=== PATIENT | male | born 1930 | race Caucasian/White ===

== ENCOUNTER → 2017-03-05 | Outpatient (CLI) | payer MEDICARE, OTHER ==
[2017-03-05 09:57] LABS: ALANINE AMINOTRANSFERASE 26 U/L (21-72); ALBUMIN 3.6 g/dL (3.5-5.0); ALKALINE PHOSPHATASE 73 U/L (38-126); ANION GAP 13 (5-19); ASPARTATE AMINO TRANSFERASE 39 U/L (17-59); BILIRUBIN,DIRECT 0.3 mg/dL (0.0-0.4); BILIRUBIN,TOTAL 0.7 mg/dL (0.2-1.3); BLOOD UREA NITROGEN 14 mg/dL (7-20); CALCIUM 9.4 mg/dL (8.4-10.2); CARBON DIOXIDE 26 mmol/L (22-30); CHLORIDE 105 mmol/L (98-107); CHOLESTEROL 126.17 mg/dL (0-200); CREATININE RESULT 0.83 mg/dL (0.52-1.25); Direct HDL 44 mg/dL (>40); GLUCOSE 131 mg/dL (75-110); MAGNESIUM 2.2 mg/dL (1.6-2.3); POTASSIUM 4.6 mmol/L (3.6-5.0); SODIUM 143.8 mmol/L (137-145); TOTAL PROTEIN 6.8 g/dL (6.3-8.2); TRIGLYCERIDES 89 mg/dL (<150)
[2017-03-05 10:09] LABS: DIRECT LDL 51 mg/dL (<100)
== END ==
LOC: OD 08:23
PROVIDERS: ATTEND Internal Medicine Cardiovascular Disease
DX: E78.00 Pure hypercholesterolemia, unspecified (principal); Z79.899 Other long term (current) drug therapy
CPT/HCPCS: 36415; 80048; 80061; 80076; 83735

== ENCOUNTER 2017-03-10 12:51 | Inpatient (IN) | payer MEDICARE, OTHER ==
--- NOTE | 2017-03-10 14:03 | ER Document Report ---
ED Medical Screen (RME) - General Chief Complaint: Shortness Of Breath Stated Complaint: SHORTNESS OF BREATH,DIZZY Time seen by provider: 14:03 Mode of Arrival: Wheelchair Information source: Patient Notes: 86-year-old man with COPD and coronary artery disease presenting with shortness of breath. TRAVEL OUTSIDE OF THE [place] IN LAST 30 DAYS: No - Related Data Allergies/Adverse Reactions: No Known Allergies Allergy (Verified 05/04/15 14:25) Past Medical History - Past Medical History Cardiac Medical History: Reports: Hx Atrial Fibrillation, Hx Congestive Heart Failure, Hx Hypercholesterolemia, Hx Hypertension Renal/ Medical History: Denies: Hx Peritoneal Dialysis Past Surgical History: Reports: Hx Cardiac Surgery - 2 stents - Immunizations Immunizations up to date: Yes Hx Diphtheria, Pertussis, Tetanus Vaccination: Yes Physical Exam - Vital signs Vitals: Temp 98.5 F 03/10/17 13:11 Course - Vital Signs Vital signs: Temp Pulse Resp BP Pulse Ox 98.5 F 03/10/17 13:11
[2017-03-10] MEDS ORDERED: IPRATROPIUM/ALBUTEROL 0.5-2.5 MG/3 ML AMPUL NEB ONE (14:04)
[2017-03-10 15:05] LABS: PROTHROMBIN TIME 14.6 SEC (11.4-15.4)
[2017-03-10 15:06] LABS: HEMATOCRIT 19.7 % (37.9-51.0); HGB HCT DIFFERENCE -3.8; MEAN CORPUSCULAR HEMOGLOBIN 16.1 pg (27.0-33.4); MEAN CORPUSCULAR HGB CONC 27.1 g/dL (32.0-36.0); RED BLOOD COUNT 3.32 10^6/uL (4.35-5.55); RED CELL DISTRIBUTION WIDTH 23.2 % (11.5-14.0); WHITE BLOOD COUNT 11.2 10^3/uL (4.0-10.5)
[2017-03-10 15:16] LABS: ALANINE AMINOTRANSFERASE 30 U/L (21-72); ALBUMIN 3.7 g/dL (3.5-5.0); ALKALINE PHOSPHATASE 65 U/L (38-126); ANION GAP 13 (5-19); ASPARTATE AMINO TRANSFERASE 40 U/L (17-59); BILIRUBIN,DIRECT 0.4 mg/dL (0.0-0.4); BILIRUBIN,TOTAL 0.8 mg/dL (0.2-1.3); BLOOD UREA NITROGEN 22 mg/dL (7-20); CALCIUM 9.4 mg/dL (8.4-10.2); CARBON DIOXIDE 24 mmol/L (22-30); CHLORIDE 104 mmol/L (98-107); CREATINE KINASE 51 U/L (55-170); GLUCOSE 114 mg/dL (75-110); POTASSIUM 5.5 mmol/L (3.6-5.0); SODIUM 140.5 mmol/L (137-145); TOTAL PROTEIN 7.1 g/dL (6.3-8.2)
[2017-03-10 15:27] LABS: CREATINE KINASE MB 1.31 ng/mL (<4.55)
[2017-03-10 15:28] LABS: TROPONIN I < 0.012 ng/mL
[2017-03-10 15:50] LABS: HEMOGLOBIN 5.3 g/dL (13.5-17.0)
[2017-03-10 15:53] LABS: BASOPHILS % (MANUAL) 1 % (0-2); EOSINOPHILS % (MANUAL) 0 % (0-6); LYMPHOCYTES % (MANUAL) 14 % (13-45); TOTAL CELLS COUNTED 100
[2017-03-10 15:55] LABS: MICROCYTOSIS 4+; POLYCHROMASIA SLIGHT; TOXIC GRANULATION SLIGHT
[2017-03-10 15:56] LABS: ANISOCYTOSIS 3+; HYPOCHROMASIA 2+; MEAN CORPUSCULAR VOLUME 59 fl (80-97); POIKILOCYTOSIS 1+
[2017-03-10] MEDS ORDERED: NORMAL SALINE 250 ML IV PRN ×5 (16:10→18:58)
--- NOTE | 2017-03-10 16:27 | ER Document Report ---
ED Respiratory Problem - General Chief Complaint: Shortness Of Breath Stated Complaint: SHORTNESS OF BREATH,DIZZY Mode of Arrival: Wheelchair Notes: Patient says that these felt that he can't breathe since yesterday morning. He has not had any chest pains. Has never had this problem before. He's been noted to have low blood pressure for the past 2 days, 87/54 exam. In triage here, his diastolic blood pressure was 39. Patient is here with his daughter who reports that he retains water his lower extremities and wears some compressive stocking device on both lower legs. He also has erythema of those lower legs which is chronic. They do not look infected to the daughter compared to what they have been in the past when he was diagnosed with MRSA. Patient has not had any vomiting or diarrhea. No UTI symptoms. No cough or chest congestion. No fevers. TRAVEL OUTSIDE OF THE [place] IN LAST 30 DAYS: No - Related Data Allergies/Adverse Reactions: No Known Allergies Allergy (Verified 05/04/15 14:25) Past Medical History - General Information source: Patient - Social History Smoking Status: Former Smoker Cigarette use (# per day): No Family History: Reviewed & Not Pertinent - Past Medical History Cardiac Medical History: Reports: Hx Atrial Fibrillation, Hx Congestive Heart Failure, Hx Hypercholesterolemia, Hx Hypertension Endocrine Medical History: Denies: Hx Diabetes Mellitus Type 1, Hx Diabetes Mellitus Type 2 GI Medical History: Reports: Hx Ulcer - Told he had a stomach ulcer many years ago. 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 EENT: Denies eye, ear, nose or mouth or throat pain or other symptoms. CARDIOVASCULAR: Denies chest pain. RESPIRATORY: Denies cough, chest congestion, but shortness of breath. GASTROINTESTINAL: Denies abdominal pain or nausea, vomiting, or diarrhea. Has not had a bowel movement for 2 days. Has been told in the past he has hemorrhoids. GENITOURINARY: Denies difficulty or painful urinating, urinary frequency, blood in urine. MUSCULOSKELETAL: Denies back or neck pain. Denies joint pain or swelling. SKIN: Denies rash or skin lesions. NEUROLOGICAL: Denies LOC or altered mental status. Denies headache. Denies sensory loss or motor deficits. ALL OTHER SYSTEMS REVIEWED AND NEGATIVE. Physical Exam - Vital signs Vitals: Temp 98.5 F 03/10/17 13:11 Interpretation: Hypotensive - Blood pressure 150/39., Other - O2 sat 97% on room air upon arrival.. No: Febrile - Notes Notes: PHYSICAL EXAMINATION: GENERAL: Well-appearing, in no acute distress. Vital signs show a diastolic hypotension. Respirations 26. HEAD: Atraumatic, normocephalic. EYES: Pupils equal round and reactive to light, extraocular movements intact. ENT: oropharynx clear without exudates. Moist mucous membranes. NECK: Normal range of motion, supple. LUNGS: Breath sounds clear and equal bilaterally. Poor air excursions bilaterally. A few scattered wheezes and rhonchi and rales are heard bilaterally. HEART: Regular rate and rhythm without murmurs. ABDOMEN: Soft, nontender. No guarding or rebound. BACK: No tenderness throughout entire back. EXTREMITIES: Normal range of motion without pain. Both lower extremities have on a compressive stocking device. Removal shows mild erythema of the mid anterior lower legs bilaterally. NEUROLOGICAL: Normal speech, too weak to test gait. Normal sensory, motor, and reflex exams. Awake, alert, and oriented x3. Cranial nerves normal. PSYCH: Normal mood, normal affect. SKIN: Warm, dry, no rashes. - Rectal Tenderness: Yes Stool: Bloody - At the entrance to the rectum, but I'm able to clean my finger off and go around this initial site of bright red blood and obtain yellow-brown stool. I think the patient may have external hemorrhoids causing the fresh looking blood that's present at the anus. Course - Re-evaluation Re-evalutation: 03/10/17 16:32 Patient is markedly anemic with a hemoglobin of 5.3. Spoke with Dr. England who will admit the patient for transfusions and further workup. - Vital Signs Vital signs: Temp Pulse Resp BP Pulse Ox 98.5 F 03/10/17 13:11 - Laboratory Result Diagrams: 03/10/17 14:45 03/10/17 14:45 Laboratory results interpreted by me: 03/10/17 03/10/17 03/10/17 14:45 14:45 14:45 WBC 11.2 H RBC 3.32 L Hgb 5.3 L Hct 19.7 L MCV 59 L MCH 16.1 L MCHC 27.1 L RDW 23.2 H Plt Count 612 H Abs Monocytes (Manual) 1.5 H Potassium 5.5 H BUN 22 H Est GFR (Non-Af Amer) 57 L Glucose 114 H Creatine Kinase 51 L NT-Pro-B Natriuret Pep 1690 H - Diagnostic Test Radiology reviewed: Image reviewed, Reports reviewed - Chest x-ray shows cardiomegaly but no evidence of congestive failure, per radiology. - EKG Interpretation by Me Additional EKG results interpreted by me: 03/10/17 16:31 EKG is difficult to interpret. The patient has a history of atrial fibrillation , but supposedly is out of it. He has a very fine tremor or quiver to his extremities and therefore the baseline on his EKG is hard to interpret in the computer in the EKG machine is interpreting this is H fibrillation. I can't really see the baseline well enough to tell if there are P waves and QRS complexes or not. Critical Care Note - Critical Care Note Total time excluding time spent on procedures (mins): 30 Discharge - Discharge Clinical Impression: Anemia Qualifiers: Anemia type: iron deficiency Iron deficiency anemia type: chronic blood loss Qualified Code(s): D50.0 - Iron deficiency anemia secondary to blood loss ( chronic) Condition: Fair Disposition: ADMITTED INPATIENT Admitting Provider: Hospitalist Unit Admitted: [facility]
[2017-03-10] MEDS ORDERED: DEXTROSE 40% GEL 15 GM TUBE PO PRN ×2 (17:19)
[2017-03-10] MEDS ORDERED: GLUCAGON,HUMAN RECOMB 1 MG INJ SUBCUT PRN (17:19)
[2017-03-10] MEDS ORDERED: DEXTROSE 50%-WATER 25 GM/50 ML DISP.SYRIN IV PRN ×2 (17:19)
[2017-03-10] MEDS ORDERED: IPRATROPIUM/ALBUTEROL 0.5-2.5 MG/3 ML AMPUL NEB PRN (17:19)
[2017-03-10] MEDS ORDERED: ONDANSETRON HCL INJ/PF 4 MG/2 ML SDV IV PRN (17:19)
[2017-03-10] MEDS ORDERED: NORMAL SALINE 1000 ML 1,000 ML IV PRN (17:19)
[2017-03-10] MEDS ORDERED: FUROSEMIDE INJ/PF 20 MG/2 ML SDV IV PRN (17:26)
[2017-03-10] MEDS ORDERED: NORMAL SALINE 1000 ML 1,000 ML IV ONE (17:32)
[2017-03-10 17:52] LABS: ALANINE AMINOTRANSFERASE 29 U/L (21-72); ALBUMIN 3.5 g/dL (3.5-5.0); ALKALINE PHOSPHATASE 71 U/L (38-126); ASPARTATE AMINO TRANSFERASE 17 U/L (17-59); BILIRUBIN,DIRECT 0.3 mg/dL (0.0-0.4); BILIRUBIN,TOTAL 0.7 mg/dL (0.2-1.3); LDH 390 U/L (313-618); TOTAL PROTEIN 6.5 g/dL (6.3-8.2)
[2017-03-10 18:02] LABS: PROTHROMBIN TIME 14.6 SEC (11.4-15.4)
[2017-03-10 18:03] LABS: PARTIAL THROMBOPLASTIN TIME 26.5 SEC (23.5-35.8)
[2017-03-10] MEDS: PANTOPRAZOLE SODIUM 40 MG VIAL IV SCH (18:06)
[2017-03-10 18:56] LABS: FERRITIN 7.16 ng/mL (17.9-464.0)
--- NOTE | 2017-03-10 19:12 | EKG REPORT ---
SEVERITY:- ABNORMAL ECG - SINUS RHYTHM WITH PAC. RIGHT BUNDLE BRANCH BLOCK NONSPECIFIC ST-T CHANGES- INFERIOR LEADS : Confirmed by: Kenneth Turner MD 10-Mar-2017 19:12:08
--- NOTE | 2017-03-10 19:25 | PDOC H&P ---
History of Present Illness Admission Date/PCP: 03/10/17 16:55 BUZZ MARSHALL MD History of Present Illness: RAMIRO LEÓN is a 86 year old male with past medical history significant for coronary artery disease, basal cell skin cancer, BPH, hemorrhoids, hypertension , hyperlipidemia, who presented to the emergency department with a one-day history of shortness of breath. And patient also complains of fatigue. He reports his last bowel movement was a properly one week ago which time he had a significant amount of bright red blood per rectum. He's had no other bowel movements in the last 1 week. He denies any abdominal pain this time. He reports that he's had some chills but no fevers. He's had a cough that's productive of clear phlegm but this is not unusual for him. Patient reports that his prior GI workup was done in the 90s. Patient here in the emergency department is found to have some bright red blood per rectum and a hemoglobin of 5.3. He is referred to hospital service for hypotension, acute blood loss anemia. Past Medical History Cardiac Medical History: Reports: Atrial Fibrillation, Congestive Heart Failure , Hyperlipidema, Hypertension Endocrine Medical History: Denies: Diabetes Mellitus Type 1, Diabetes Mellitus Type 2 Past Surgical History Past Surgical History: TURP Past Surgical History: Reports: Cardiac Catheterization, Other - Rectal surgery Social History Smoking Status: Former Smoker Frequency of Alcohol Use: None Hx Recreational Drug Use: No Hx Prescription Drug Abuse: No - Advance Directive Resuscitation Status: Do Not Resuscitate Surrogate healthcare decision maker:: Vaenssa Escoto, daughter Family History Family History: CVA, Other - Zoila Gehrig's disease Parental Family History Reviewed: Yes Children Family History Reviewed: Yes Sibling(s) Family History Reviewed.: Yes Medication/Allergy Home Medications: Atorvastatin Calcium 20 mg PO DAILY 03/06/15 Clonidine HCl [Catapres] 0.2 mg PO TID 03/06/15 Magnesium Oxide [Magnesium] 400 mg PO DAILY 03/06/15 Prasugrel Hydrochloride [Effient] 10 mg PO DAILY 03/06/15 Ammonium Lactate 385 gm TP BID 05/06/15 Cetirizine HCl [Allergy] 10 mg PO DAILY 05/06/15 Ezetimibe [Zetia 10 mg Tablet] 10 mg PO DAILY 05/06/15 Nitroglycerin [Nitrostat 0.4 mg (1/150 Gr) Tabs 25/Bottle] 1 tab SL ASDIR PRN Amlodipine Besylate [Norvasc 10 mg Tablet] 10 mg PO DAILY #0 tablet 05/15/15 Lisinopril [Prinivil 10 mg Tablet] 20 mg PO DAILY #30 tablet 05/15/15 Allergies/Adverse Reactions: No Known Allergies Allergy (Verified 05/04/15 14:25) Review of Systems Constitutional: PRESENT: chills, fatigue, weakness. ABSENT: fever(s), headache( s), weight gain, weight loss Eyes: ABSENT: visual disturbances Ears: ABSENT: hearing changes Cardiovascular: PRESENT: orthropnea. ABSENT: chest pain, dyspnea on exertion, edema, palpitations Respiratory: PRESENT: dyspnea. ABSENT: cough, hemoptysis, sputum Gastrointestinal: PRESENT: constipation, hematochezia, melena - Dark and firm. ABSENT: abdominal pain, bloating, diarrhea, dysphagia, heartburn, hematemesis, nausea, vomiting Genitourinary: ABSENT: difficulty urinating, dysuria, hematuria, nocturia Musculoskeletal: ABSENT: joint swelling Integumentary: ABSENT: rash, wounds Neurological: PRESENT: tremor(s) - Chronic. ABSENT: abnormal gait, abnormal speech, confusion, dizziness, focal weakness, syncope Psychiatric: ABSENT: anxiety, depression, homidical ideation, suicidal ideation Endocrine: ABSENT: cold intolerance, heat intolerance, polydipsia, polyuria Hematologic/Lymphatic: ABSENT: easy bleeding, easy bruising Physical Exam Vital Signs: Temp Pulse Resp BP Pulse Ox 98.5 F 03/10/17 13:11 General appearance: PRESENT: morbidly obese, well-developed, well-nourished, other - Acutely ill-appearing Head exam: PRESENT: atraumatic, normocephalic Eye exam: PRESENT: conjunctiva pale, EOMI, PERRLA. ABSENT: scleral icterus Ear exam: PRESENT: normal external ear exam Mouth exam: PRESENT: dry mucosa, tongue midline, other - Smooth tongue Neck exam: ABSENT: JVD, lymphadenopathy, thyromegaly, tracheal deviation Respiratory exam: PRESENT: accessory muscle use, clear to auscultation camille, decreased breath sounds - Bilateral bases, tachypnea. ABSENT: crackles, rales, rhonchi, unlabored - Slightly labored, wheezes Cardiovascular exam: PRESENT: RRR. ABSENT: diastolic murmur, rubs, systolic murmur Pulses: PRESENT: normal radial pulses Vascular exam: PRESENT: pallor GI/Abdominal exam: PRESENT: distended, hernia - Umbilical, hypoactive bowel sounds, soft, other - Limited by body habitus. ABSENT: firm, guarding, mass, Mendoza's sign, organolmegaly, rebound, rigid, tenderness Rectal exam: PRESENT: deferred, heme (+) stool - Per ER, hemorrhoids - Per ER Extremities exam: PRESENT: +1 edema - Chronic lymphedema. ABSENT: clubbing, pedal edema Neurological exam: PRESENT: alert, awake, oriented to person, oriented to place , oriented to time, oriented to situation, CN II-XII grossly intact. ABSENT: motor sensory deficit Psychiatric exam: PRESENT: appropriate affect, normal mood. ABSENT: homicidal ideation, suicidal ideation Skin exam: PRESENT: dry, intact, warm. ABSENT: cyanosis, rash Results Impressions: Chest X-Ray 03/10/17 14:03 IMPRESSION: Borderline cardiomegaly without CHF. Assessment & Plan - Diagnosis (1) Acute blood loss anemia Is this a current diagnosis for this admission?: YesPlan: We'll transfusion patient total of 6 units of packed red blood cells. Suspect patient's hemoglobin is significantly less than 5.3. He appears to be mildly dehydrated. This patient in the ICU. We'll consult GI and obtain a stat CT the abdomen and pelvis. Patient on Effient and will give unit of platelets. (2) Hypotension Qualifiers: Hypotension type: other hypotension type Qualified Code(s): I95.89 - Other hypotension Is this a current diagnosis for this admission?: YesPlan: Secondary to acute blood loss and continued compliance with his extensive antihypertensive therapy. (3) Anemia Qualifiers: Anemia type: iron deficiency Iron deficiency anemia type: chronic blood loss Qualified Code(s): D50.0 - Iron deficiency anemia secondary to blood loss (chronic) Is this a current diagnosis for this admission?: YesPlan: Will obtain anemia panel prior to transfusion. (4) CAD (coronary artery disease) Qualifiers: Coronary Disease-Associated Artery/Lesion type: [place] artery [place] vs. transplanted heart: [place] heart Associated angina: without angina Qualified Code(s): I25.10 - Atherosclerotic heart disease of [place] coronary artery without angina pectoris Is this a current diagnosis for this admission?: Yes (5) Diabetes mellitus Qualifiers: Diabetes mellitus type: type 2 Diabetes mellitus complication status: without complication Diabetes mellitus longterm insulin use: without petroleum terminal plant operator use Qualified Code(s): E11.9 - Type 2 diabetes mellitus without complications Is this a current diagnosis for this admission?: No (6) HLD (hyperlipidemia) Qualifiers: Hyperlipidemia type: unspecified Qualified Code(s): E78.5 - Hyperlipidemia, unspecified Is this a current diagnosis for this admission?: Yes (7) Morbid obesity Qualifiers: Obesity type: due to excess calories Qualified Code(s): E66.01 - Morbid (severe) obesity due to excess calories Is this a current diagnosis for this admission?: Yes - Time Time Spent: 50 to 70 Minutes Critical Time spent with patient: 35 or more minutes Medications reviewed and adjusted accordingly: Yes
[2017-03-10 21:58] LABS: CREATINE KINASE MB 1.05 ng/mL (<4.55)
[2017-03-10 21:59] LABS: TROPONIN I < 0.012 ng/mL
[2017-03-11] MEDS: PANTOPRAZOLE SODIUM 40 MG VIAL IV SCH ×2 (06:32→17:14)
[2017-03-11] MEDS ORDERED: ALBUTEROL SULFATE HFA (90 MCG/PUFF) 8 GM MDI (1 MDI/ER DISP) IH PRN (07:12)
[2017-03-11] MEDS: CETIRIZINE 10 MG TABLET PO SCH (10:24)
[2017-03-11] MEDS: CYANOCOBALAMIN (VITAMIN B-12) INJ 1000 MCG/1 ML VIAL IM SCH (10:24)
[2017-03-11] MEDS: CLONIDINE HCL 0.1 MG TABLET PO PRN ×2 (10:25→17:01)
[2017-03-11] MEDS ORDERED: PEG 3350/NA SULF,BICARB,CL/KCL 4000 ML PO ONE (11:30)
--- NOTE | 2017-03-11 11:47 | PDOC CONSULTATION ---
Consultation Consult Date: 03/11/17 Consult reason:: GI bleeding History of Present Illness Admission Date/PCP: 03/10/17 17:19 BUZZ MARSHALL MD History of Present Illness: patient admitted to the ICU patient is on Effient Hgb around 5 patient states about 1 week ago , had straining and had rectal bleeding patient states had GI work up in the distant past with Dr Lowry in the 's patient denies any melena however does have occasional abdominal pain patient had multiple comorbidities, will need repeat GI work up may need Propofol sedation I have asked Dr Pina of Anesthesia to see if patient could be candidate for Propofol patient current drinking when I saw him patient denies any current chest pain or SOB Past Medical History Cardiac Medical History: Reports: Atrial Fibrillation, Congestive Heart Failure , Hyperlipidema, Hypertension Endocrine Medical History: Denies: Diabetes Mellitus Type 1, Diabetes Mellitus Type 2 Past Surgical History Past Surgical History: Reports: Cardiac Catheterization, Other - Rectal surgery Social History Smoking Status: Former Smoker Frequency of Alcohol Use: None Hx Recreational Drug Use: No Hx Prescription Drug Abuse: No - Advance Directive Resuscitation Status: Full Code Family History Family History: Reviewed & Not Pertinent Parental Family History Reviewed: Yes Children Family History Reviewed: Unknown Sibling(s) Family History Reviewed.: Unknown Medication/Allergy Home Medications: Atorvastatin Calcium 20 mg PO DAILY 03/06/15 Prasugrel Hydrochloride [Effient] 10 mg PO DAILY 03/06/15 Cetirizine HCl [Allergy] 10 mg PO DAILY 05/06/15 Ezetimibe [Zetia 10 mg Tablet] 10 mg PO DAILY 05/06/15 Nitroglycerin [Nitrostat 0.4 mg (1/150 Gr) Tabs 25/Bottle] 1 tab SL ASDIR PRN Amlodipine Besylate [Norvasc 10 mg Tablet] 10 mg PO DAILY #0 tablet 05/15/15 Albuterol Sulfate [Proair HFA] 2 puff IH QIDP PRN 03/10/17 Clonidine HCl [Catapres 0.3 mg Tablet] 0.3 mg PO TID 03/10/17 Fluticasone/Salmeterol [Advair 250-50 Diskus 28 dose] 1 inh IH Q12 03/10/17 Lisinopril [Prinivil 10 mg Tablet] 10 mg PO DAILY 03/10/17 Allergies/Adverse Reactions: No Known Allergies Allergy (Verified 05/04/15 14:25) Review of Systems Constitutional: ABSENT: fever(s), headache(s), night sweats, weakness Eyes: ABSENT: visual disturbances Nose, Mouth, and Throat: ABSENT: mouth pain Cardiovascular: PRESENT: edema. ABSENT: palpitations Respiratory: PRESENT: dyspnea. ABSENT: hemoptysis Gastrointestinal: PRESENT: constipation, hematochezia. ABSENT: diarrhea, dysphagia, melena, nausea, vomiting Genitourinary: ABSENT: dysuria, hematuria Musculoskeletal: ABSENT: deformity Integumentary: ABSENT: pruritus Psychiatric: ABSENT: anxiety Endocrine: ABSENT: polydipsia, polyphagia, polyuria Hematologic/Lymphatic: PRESENT: easy bruising Physical Exam Vital Signs: Temp Pulse Resp BP Pulse Ox 98.5 F 63 20 169/66 H 95 03/11/17 11:36 03/11/17 11:36 03/11/17 11:36 03/11/17 11:36 03/11/17 11:36 Intake & Output 03/10/17 03/11/17 03/12/17 06:59 06:59 06:59 Intake Total 700 350 Output Total 350 Balance 700 0 Weight 145.4 kg General appearance: PRESENT: no acute distress, well-developed, well-nourished Head exam: PRESENT: atraumatic, normocephalic Eye exam: PRESENT: EOMI, PERRLA. ABSENT: periorbital swelling, scleral icterus Throat exam: ABSENT: tonsillar exudate Neck exam: ABSENT: meningismus, tenderness, thyromegaly Respiratory exam: PRESENT: crackles, symmetrical, tachypnea Cardiovascular exam: PRESENT: RRR, +S1, +S2 GI/Abdominal exam: PRESENT: soft. ABSENT: Mendoza's sign, rebound, rigid, tenderness Musculoskeletal exam: PRESENT: full ROM Neurological exam: PRESENT: oriented to time, oriented to situation, CN II-XII grossly intact Psychiatric exam: PRESENT: appropriate affect Skin exam: PRESENT: normal color. ABSENT: pallor, urticaria, vesicles Results Laboratory Results: 03/10/17 03/10/17 21:10 21:10 Creatine Kinase 32 L CK-MB (CK-2) 1.05 Troponin I < 0.012 Impressions: Abdomen/Pelvis CT 03/10/17 00:00 IMPRESSION: NO SIGNIFICANT OR ACUTE ABDOMINAL PROCESS. Chest X-Ray 03/10/17 14:03 IMPRESSION: Borderline cardiomegaly without CHF. Assessment & Plan - Diagnosis (1) Acute blood loss anemia Is this a current diagnosis for this admission?: YesPlan: possible lower GI bleed patient currently on Effient and this has been discontinued I have spoken with Dr England patient will need EGD and colonoscopy and may not be a candidate for conscious sedation will need blood transfusion plan on possible GI procedures in [place] on Tuesday 03/13 I have asked anesthesia to see patient before further recommendations to follow - Time Time Spent: 50 to 70 Minutes
[2017-03-11 12:00] LABS: HEMATOCRIT 26.6 % (37.9-51.0); HGB HCT DIFFERENCE -2.3; MEAN CORPUSCULAR HEMOGLOBIN 19.9 pg (27.0-33.4); MEAN CORPUSCULAR HGB CONC 30.5 g/dL (32.0-36.0); RED BLOOD COUNT 4.08 10^6/uL (4.35-5.55); RED CELL DISTRIBUTION WIDTH 26.1 % (11.5-14.0); WHITE BLOOD COUNT 10.2 10^3/uL (4.0-10.5)
[2017-03-11 12:14] LABS: ANION GAP 11 (5-19); BLOOD UREA NITROGEN 15 mg/dL (7-20); CALCIUM 9.1 mg/dL (8.4-10.2); CARBON DIOXIDE 28 mmol/L (22-30); CHLORIDE 102 mmol/L (98-107); CREATINE KINASE 39 U/L (55-170); GLUCOSE 129 mg/dL (75-110); POTASSIUM 5.4 mmol/L (3.6-5.0); SODIUM 140.5 mmol/L (137-145)
[2017-03-11 12:15] LABS: MAGNESIUM 2.1 mg/dL (1.6-2.3); PHOSPHORUS 3.4 mg/dL (2.5-4.5)
[2017-03-11 12:26] LABS: HEMOGLOBIN 8.1 g/dL (13.5-17.0); MEAN CORPUSCULAR VOLUME 65 fl (80-97)
[2017-03-11 12:29] LABS: ANISOCYTOSIS 3+; BASOPHILS % (MANUAL) 0 % (0-2); EOSINOPHILS % (MANUAL) 2 % (0-6); HYPOCHROMASIA 2+; LYMPHOCYTES % (MANUAL) 19 % (13-45); MICROCYTOSIS 3+; NUCLEATED RED BLOOD CELLS 2 /100 WBC (0); ROULEAUX 1+; TOTAL CELLS COUNTED 100
[2017-03-11 12:30] LABS: OVALOCYTES 1+; PLATELET CLUMPS PRESENT; POIKILOCYTOSIS 1+; POLYCHROMASIA 1+; SCHISTOCYTES SLIGHT
[2017-03-11] MEDS: FLUTICASONE/SALMETEROL DISKUS 250-50 MCG/DOSE IH SCH ×2 (13:04→22:30)
[2017-03-11] MEDS: FUROSEMIDE INJ/PF 20 MG/2 ML SDV IV PRN ×3 (15:00→19:24)
[2017-03-11 16:50] LABS: PATH REVIEW PATHOLOGIST REVIEWED
[2017-03-11] MEDS ORDERED: CLONIDINE 0.2 MG/24 HR PATCH.TDWK TD SCH (17:00)
[2017-03-11] MEDS ORDERED: HYDRALAZINE HCL INJ/PF 20 MG/1 ML SDV ONE (17:14)
[2017-03-11] MEDS: CLONIDINE 0.3 MG/24 HR PATCH.TDWK TD SCH (18:55)
--- NOTE | 2017-03-11 19:43 | XCELERA REPORT ---
[address] [address] Transthoracic Echocardiogram Report Name: RAMIRO LEÓN Age: 86 yrs Gender: Male : 1930 Patient Status: Inpatient Patient Location: ICU\S\602\S\A Study Date: 03/11/2017 11:06 AM Height: 72 in Weight: 320 lb BSA: 2.6 m2 Procedure: A complete two-dimensional transthoracic echocardiogram was performed (2D, M-mode, spectral and color flow Doppler). The study was technically difficult with many images being suboptimal in quality. Reason For Study: chf Ordering Physician: DAVON BRICENO Performed By: Lola Marquez Interpretation Summary The study was technically difficult with many images being suboptimal in quality. The left ventricular ejection fraction is normal. There is mild concentric left ventricular hypertrophy. The left ventricle is grossly normal size. Doppler measurements suggest impaired left ventricular relaxation, which is associated with grade I/IV or mild diastolic dysfunction Wall motion cannot be accurately commented on, but no definite regional wall motion abnormalities noted. The right ventricle is mildly dilated. The right ventricular systolic function is normal. The right atrium is mildly dilated. The left atrium is mildly dilated. There is no mitral valve stenosis. There is a trace amount of mitral regurgitation There is no aortic valve stenosis No aortic regurgitation is present. There is a trace or physiologic amount of tricuspid regurgitation Tricuspid regurgitation jet envelope not well defined to measure RV systolic pressure accurately. The aortic root is not well visualized. The inferior vena cava appeared normal and decreased < 50% with respiration (RAP 10-15 mmHg) There is no pericardial effusion. MMode/2D Measurements \T\ Calculations RVDd: 3.1 cm LVIDd: 5.5 cm FS: 54.7 % Ao root diam: 3.6 cm IVSd: 1.0 cm LVIDs: 2.5 cm EDV(Teich): 150.1 ml LVPWd: 1.0 cm ESV(Teich): 22.5 ml Ao root area: 10.1 cm2 EF(Teich): 85.0 % LA dimension: 4.0 cm Doppler Measurements \T\ Calculations MV E max zakiya: MV P1/2t max zakiya: Ao V2 max: LV V1 max P.1 cm/sec 111.6 cm/sec 156.9 cm/sec 8.2 mmHg MV A max zakiya: MV P1/2t: 58.3 msec Ao max PG: LV V1 max: 111.6 cm/sec 9.8 mmHg 143.1 cm/sec MV E/A: 1.00 MVA(P1/2t): 3.8 cm2 MV dec slope: 560.7 cm/sec2 MV dec time: 0.19 sec PA V2 max: PI end-d zakiya: 97.7 cm/sec 112.7 cm/sec PA max P.8 mmHg Left Ventricle The left ventricle is grossly normal size. There is mild concentric left ventricular hypertrophy. The left ventricular ejection fraction is normal. Doppler measurements suggest impaired left ventricular relaxation, which is associated with grade I/IV or mild diastolic dysfunction. Wall motion cannot be accurately commented on, but no definite regional wall motion abnormalities noted. Right Ventricle The right ventricle is mildly dilated. The right ventricular systolic function is normal. Atria The right atrium is mildly dilated. The left atrium is mildly dilated. Interarterial septum not well visualized and not well dopplered. Cannot comment on ASD/PFO presence. Mitral Valve The mitral valve is not well visualized. There is no mitral valve stenosis. There is a trace amount of mitral regurgitation. Aortic Valve The aortic valve is not well visualized secondary to technical limitations. There is no aortic valve stenosis. No aortic regurgitation is present. Tricuspid Valve The tricuspid valve is not well visualized secondary to technical limitations. There is no tricuspid stenosis. There is a trace or physiologic amount of tricuspid regurgitation. Tricuspid regurgitation jet envelope not well defined to measure RV systolic pressure accurately. Pulmonic Valve The pulmonic valve is not well visualized. Great Vessels The aortic root is not well visualized. The inferior vena cava appeared normal and decreased < 50% with respiration (RAP 10-15 mmHg). Effusions There is no pericardial effusion. : DAVON BRICENO > Daisy Barba
[2017-03-11 21:39] LABS: ABSOLUTE BASOPHILS # (AUTO) 0.2 10^3/uL (0.0-0.2); ABSOLUTE LYMPHOCYTES (AUTO) 1.3 10^3/uL (0.5-4.7); ABSOLUTE MONOCYTES (AUTO) 1.2 10^3/uL (0.1-1.4); ABSOLUTE NEUT (AUTO) 9.2 10^3/uL (1.7-8.2); BASOPHILS % (AUTO) 1.8 % (0-2); EOSINOPHILS % (AUTO) 0.4 % (0-6); HEMATOCRIT 33.9 % (37.9-51.0); HGB HCT DIFFERENCE -1.2; LYMPHOCYTES % (AUTO) 10.6 % (13-45); MEAN CORPUSCULAR HEMOGLOBIN 21.2 pg (27.0-33.4); MEAN CORPUSCULAR HGB CONC 32.1 g/dL (32.0-36.0); MEAN CORPUSCULAR VOLUME 66 fl (80-97); MONOCYTES % (AUTO) 10.4 % (3-13); RED BLOOD COUNT 5.13 10^6/uL (4.35-5.55); RED CELL DISTRIBUTION WIDTH 26.2 % (11.5-14.0); SEGMENTED NEUTROPHILS % (AUTO) 76.8 % (42-78)
[2017-03-11 21:45] LABS: HEMOGLOBIN 10.9 g/dL (13.5-17.0)
[2017-03-11 21:51] LABS: TOXIC GRANULATION SLIGHT
[2017-03-11 21:56] LABS: HYPOCHROMASIA 1+; POLYCHROMASIA SLIGHT
[2017-03-11 21:57] LABS: ANISOCYTOSIS 2+; MICROCYTOSIS 2+; OVALOCYTES SLIGHT; STOMATOCYTES SLIGHT; TARGET CELLS SLIGHT
[2017-03-11] MEDS: ACETAMINOPHEN 325 MG TABLET PO PRN (22:29)
[2017-03-11] MEDS: HYDRALAZINE HCL INJ/PF 20 MG/1 ML SDV IV PRN (22:30)
[2017-03-12] MEDS: CLONIDINE HCL 0.1 MG TABLET PO PRN ×2 (01:31→08:31)
[2017-03-12] MEDS: HYDRALAZINE HCL INJ/PF 20 MG/1 ML SDV IV PRN ×2 (02:43→07:37)
[2017-03-12 04:37] LABS: HAPTOGLOBIN 208 mg/dL (34-200)
[2017-03-12] MEDS ORDERED: PEG 3350/NA SULF,BICARB,CL/KCL 4000 ML PO PRN (05:00)
[2017-03-12] MEDS: PANTOPRAZOLE SODIUM 40 MG VIAL IV SCH ×2 (05:45→18:27)
[2017-03-12 07:34] LABS: TRANSFERRIN 259 mg/dL (200-370)
[2017-03-12] MEDS ORDERED: FUROSEMIDE INJ/PF 20 MG/2 ML SDV IV ONE (09:50)
[2017-03-12] MEDS ORDERED: ALBUTEROL SULFATE HFA (90 MCG/PUFF) 200 PUFF/8.5 GM MDI IH PRN (09:51)
[2017-03-12] MEDS: CYANOCOBALAMIN (VITAMIN B-12) INJ 1000 MCG/1 ML VIAL IM SCH (10:14)
[2017-03-12] MEDS: AMLODIPINE BESYLATE 10 MG TABLET PO SCH (10:15)
[2017-03-12] MEDS: LISINOPRIL 10 MG TABLET PO SCH (10:15)
[2017-03-12] MEDS: CETIRIZINE 10 MG TABLET PO SCH (10:16)
[2017-03-12] MEDS: FLUTICASONE/SALMETEROL DISKUS 250-50 MCG/DOSE IH SCH ×2 (10:17→23:18)
[2017-03-12] MEDS: ERYTHROMYCIN 0.5% OPH OINTMENT 3.5 GM TUBE OD SCH ×2 (12:54→18:28)
--- NOTE | 2017-03-12 14:51 | PDOC PROGRESS REPORT ---
Subjective Progress Note for:: 03/12/17 Subjective:: patient remains in the ICU has been seen by anesthesia patient has started prep but is asleep no results yet Hgb is stable but has had PRBC tranfusion no acute bleeding noted patient scheduled for EGD and colonoscopy tomorrow Physical Exam Vital Signs: Temp Pulse Resp BP Pulse Ox 100.3 F 72 24 H 164/48 H 97 03/12/17 12:00 03/12/17 12:00 03/12/17 14:00 03/12/17 13:29 03/12/17 14:00 Intake & Output 03/11/17 03/12/17 03/13/17 06:59 06:59 06:59 Intake Total 700 2110 Output Total 5110 350 Balance 700 -3000 -350 Weight 140.5 kg General appearance: PRESENT: no acute distress, well-developed, well-nourished Head exam: PRESENT: atraumatic, normocephalic Eye exam: PRESENT: EOMI, PERRLA. ABSENT: periorbital swelling, scleral icterus Throat exam: ABSENT: tonsillar exudate, tonsillogmegaly Neck exam: ABSENT: meningismus, tenderness, thyromegaly Respiratory exam: PRESENT: symmetrical, unlabored. ABSENT: wheezes Cardiovascular exam: PRESENT: RRR, +S1, +S2 GI/Abdominal exam: PRESENT: soft. ABSENT: ascites, rebound, rigid, tenderness Extremities exam: PRESENT: +2 edema Neurological exam: PRESENT: alert, oriented to time, oriented to situation Psychiatric exam: PRESENT: appropriate affect Skin exam: ABSENT: mottled, pallor, urticaria Results Laboratory Results: 03/11/17 21:15 03/11/17 11:49 03/10/17 03/11/17 21:10 21:15 WBC 12.0 H RBC 5.13 Hgb 10.9 L D Hct 33.9 L MCV 66 L MCH 21.2 L MCHC 32.1 RDW 26.2 H Plt Count 448 Seg Neutrophils % 76.8 Lymphocytes % 10.6 L Monocytes % 10.4 Eosinophils % 0.4 Basophils % 1.8 Absolute Neutrophils 9.2 H Absolute Lymphocytes 1.3 Absolute Monocytes 1.2 Absolute Eosinophils 0.0 Absolute Basophils 0.2 Transferrin 259 03/11/17 08:45 Nasophary (Mrsa Only) MRSA Surveillance Culture - Final MRSA RECOVERED 03/10/17 03/10/17 03/11/17 21:10 21:10 11:49 Creatine Kinase 32 L 39 L CK-MB (CK-2) 1.05 Troponin I < 0.012 Impressions: Abdomen/Pelvis CT 03/10/17 00:00 IMPRESSION: NO SIGNIFICANT OR ACUTE ABDOMINAL PROCESS. Chest X-Ray 03/12/17 00:00 IMPRESSION: Cardiomegaly. No acute infiltrates Assessment & Plan - Diagnosis (1) Acute blood loss anemia Is this a current diagnosis for this admission?: YesPlan: stable for now following transfusion patient is schedule for GI work up tomorrow his anticoagulation has been discontinued as well should be able to proceed Risks, benefits and alternatives discussed with the patient in detail further recommendations to follow - Time Time Spent with patient: 15-24 minutes
--- NOTE | 2017-03-12 19:25 | PDOC PROGRESS REPORT ---
Subjective Progress Note for:: 03/12/17 Subjective:: Patient reports large bowel movement. He reports he is hungry Patient denies chest pain, shortness of breath, abdominal pain, nausea, vomiting , fevers, chills, diarrhea, constipation, headache, new onset weakness. Physical Exam Vital Signs: Temp Pulse Resp BP Pulse Ox 99.0 F 68 26 H 185/55 H 96 03/12/17 04:00 03/11/17 20:00 03/12/17 06:00 03/12/17 05:29 03/12/17 06:00 Intake & Output 03/11/17 03/12/17 03/13/17 06:59 06:59 06:59 Intake Total 700 2110 Output Total 5110 Balance 700 -3000 Weight 140.5 kg Exam: General: Awake alert, no acute respiratory distress HEENT: AT/NC, PERRL, EOMI, oropharynx is moist, pink, no scleral icterus, no conjunctival injection, right eye green discharge Neck: No JVD, trachea midline Chest: Diminished bases, Clear to auscultation bilaterally, no wheezes rhonchi or rales CV: Regular rate and rhythm, normal S1 and S2, no murmur, rub, or gallop Abdomen: Soft, nontender to palpation, nondistended, active bowel sounds; no rebound, rigidity, or guarding Extremities: No cyanosis, clubbing; chronic lymphedema Neuro: Cranial nerves II through XII are grossly intact without focal deficits Psych: Normal mood and affect Results Laboratory Results: 03/11/17 21:15 03/11/17 11:49 03/10/17 03/11/17 03/11/17 21:10 11:49 11:49 WBC 10.2 RBC 4.08 L Hgb 8.1 L D Hct 26.6 L MCV 65 L D MCH 19.9 L MCHC 30.5 L RDW 26.1 H Plt Count 478 H Seg Neutrophils % Not Reportable Lymphocytes % Not Reportable Monocytes % Not Reportable Eosinophils % Not Reportable Basophils % Not Reportable Absolute Neutrophils Not Reportable Absolute Lymphocytes Not Reportable Absolute Monocytes Not Reportable Absolute Eosinophils Not Reportable Absolute Basophils Not Reportable Sodium 140.5 Potassium 5.4 H Chloride 102 Carbon Dioxide 28 Anion Gap 11 BUN 15 Creatinine 0.80 Est GFR ( Amer) > 60 Est GFR (Non-Af Amer) > 60 Glucose 129 H Calcium 9.1 Phosphorus Magnesium Transferrin 259 03/11/17 03/11/17 11:49 21:15 WBC 12.0 H RBC 5.13 Hgb 10.9 L D Hct 33.9 L MCV 66 L MCH 21.2 L MCHC 32.1 RDW 26.2 H Plt Count 448 Seg Neutrophils % 76.8 Lymphocytes % 10.6 L Monocytes % 10.4 Eosinophils % 0.4 Basophils % 1.8 Absolute Neutrophils 9.2 H Absolute Lymphocytes 1.3 Absolute Monocytes 1.2 Absolute Eosinophils 0.0 Absolute Basophils 0.2 Sodium Potassium Chloride Carbon Dioxide Anion Gap BUN Creatinine Est GFR ( Amer) Est GFR (Non-Af Amer) Glucose Calcium Phosphorus 3.4 Magnesium 2.1 Transferrin 03/10/17 03/10/17 03/11/17 21:10 21:10 11:49 Creatine Kinase 32 L 39 L CK-MB (CK-2) 1.05 Troponin I < 0.012 Impressions: Abdomen/Pelvis CT 03/10/17 00:00 IMPRESSION: NO SIGNIFICANT OR ACUTE ABDOMINAL PROCESS. Chest X-Ray 03/10/17 14:03 IMPRESSION: Borderline cardiomegaly without CHF. Assessment & Plan - Diagnosis (1) Hypertensive urgency Is this a current diagnosis for this admission?: YesPlan: Place patient on schedule hydralazine. Resume home Norvasc. Currently transition patient from oral to topical clonidine. (2) Acute blood loss anemia Is this a current diagnosis for this admission?: YesPlan: Patient's hemoglobin has been adequately repleted. He is also found to be vitamin B-12 and iron deficient. Plan for patient to have upper and lower endoscopy tomorrow. (3) Anemia Qualifiers: Anemia type: iron deficiency Iron deficiency anemia type: chronic blood loss Qualified Code(s): D50.0 - Iron deficiency anemia secondary to blood loss (chronic) Is this a current diagnosis for this admission?: YesPlan: Violet and B 12 deficient. Initiate vitamin B-12 and iron (4) CAD (coronary artery disease) Qualifiers: Coronary Disease-Associated Artery/Lesion type: [place] artery [place] vs. 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: without longterm use Qualified Code(s): E11.9 - Type 2 diabetes mellitus without complications Is this a current diagnosis for this admission?: No (6) HLD (hyperlipidemia) Qualifiers: Hyperlipidemia type: unspecified Qualified Code(s): E78.5 - Hyperlipidemia, unspecified Is this a current diagnosis for this admission?: Yes (7) Morbid obesity Qualifiers: Obesity type: due to excess calories Qualified Code(s): E66.01 - Morbid (severe) obesity due to excess calories Is this a current diagnosis for this admission?: Yes - Time Time Spent with patient: 25-34 minutes Medications reviewed and adjusted accordingly: Yes
--- NOTE | 2017-03-12 19:30 | PDOC PROGRESS REPORT ---
Subjective Progress Note for:: 03/11/17 Subjective:: Patient reports he feels improved. He reports he is hungry Patient denies chest pain, shortness of breath, abdominal pain, nausea, vomiting , fevers, chills, diarrhea, headache, new onset weakness. Physical Exam Vital Signs: Selected Entries 03/11/17 09:10 Temperature 98.7 F Temperature Oral Source Pulse Rate 68 Respiratory 20 Rate Blood Pressure 170/84 H [Right Upper Arm] O2 Sat by Pulse 94 Oximetry Oxygen Delivery Room Air Method ( includes room air) Exam: General: Awake alert, no acute respiratory distress HEENT: AT/NC, PERRL, EOMI, oropharynx is moist, pink, no scleral icterus, no conjunctival injection, right eye green discharge Neck: No JVD, trachea midline Chest: Diminished bases, Clear to auscultation bilaterally, no wheezes rhonchi or rales CV: Regular rate and rhythm, normal S1 and S2, no murmur, rub, or gallop Abdomen: Soft, nontender to palpation, nondistended, active bowel sounds; no rebound, rigidity, or guarding Extremities: No cyanosis, clubbing; chronic lymphedema Neuro: Cranial nerves II through XII are grossly intact without focal deficits Psych: Normal mood and affect Results Laboratory Results: 03/11/17 21:15 03/11/17 11:49 03/10/17 03/11/17 21:10 21:15 WBC 12.0 H RBC 5.13 Hgb 10.9 L D Hct 33.9 L MCV 66 L MCH 21.2 L MCHC 32.1 RDW 26.2 H Plt Count 448 Seg Neutrophils % 76.8 Lymphocytes % 10.6 L Monocytes % 10.4 Eosinophils % 0.4 Basophils % 1.8 Absolute Neutrophils 9.2 H Absolute Lymphocytes 1.3 Absolute Monocytes 1.2 Absolute Eosinophils 0.0 Absolute Basophils 0.2 Transferrin 259 03/11/17 08:45 Nasophary (Mrsa Only) MRSA Surveillance Culture - Final MRSA RECOVERED 03/10/17 03/10/17 03/11/17 21:10 21:10 11:49 Creatine Kinase 32 L 39 L CK-MB (CK-2) 1.05 Troponin I < 0.012 Impressions: Abdomen/Pelvis CT 03/10/17 00:00 IMPRESSION: NO SIGNIFICANT OR ACUTE ABDOMINAL PROCESS. Chest X-Ray 03/12/17 00:00 IMPRESSION: Cardiomegaly. No acute infiltrates Assessment & Plan - Diagnosis (1) Hypertensive urgency Is this a current diagnosis for this admission?: YesPlan: We'll begin to resume patient's home medications as tolerated (2) Acute blood loss anemia Is this a current diagnosis for this admission?: YesPlan: Patient's hemoglobin has been adequately repleted. To be seen by GI. (3) Anemia Qualifiers: Anemia type: iron deficiency Iron deficiency anemia type: chronic blood loss Qualified Code(s): D50.0 - Iron deficiency anemia secondary to blood loss (chronic) Is this a current diagnosis for this admission?: YesPlan: Return repletion (4) CAD (coronary artery disease) Qualifiers: Coronary Disease-Associated Artery/Lesion type: [place] artery [place] vs. transplanted heart: [place] heart Associated angina: without angina Qualified Code(s): I25.10 - Atherosclerotic heart disease of [place] coronary artery without angina pectoris Is this a current diagnosis for this admission?: Yes (5) Diabetes mellitus Qualifiers: Diabetes mellitus type: type 2 Diabetes mellitus complication status: without complication Diabetes mellitus nursing home insulin use: without nursing home use Qualified Code(s): E11.9 - Type 2 diabetes mellitus without complications Is this a current diagnosis for this admission?: NoPlan: Monitor for hypoglycemia (6) HLD (hyperlipidemia) Qualifiers: Hyperlipidemia type: unspecified Qualified Code(s): E78.5 - Hyperlipidemia, unspecified Is this a current diagnosis for this admission?: Yes (7) Morbid obesity Qualifiers: Obesity type: due to excess calories Qualified Code(s): E66.01 - Morbid (severe) obesity due to excess calories Is this a current diagnosis for this admission?: Yes - Time Time Spent with patient: 25-34 minutes Medications reviewed and adjusted accordingly: Yes
[2017-03-12] MEDS: HYDRALAZINE HCL 50 MG TABLET PO SCH (21:58)
[2017-03-12] MEDS ORDERED: ATORVASTATIN CALCIUM 20 MG TABLET PO SCH (22:00)
[2017-03-13] MEDS: ERYTHROMYCIN 0.5% OPH OINTMENT 3.5 GM TUBE OD SCH ×5 (00:18→23:56)
[2017-03-13 04:46] LABS: PARTIAL THROMBOPLASTIN TIME 28.7 SEC (23.5-35.8); PROTHROMBIN TIME 14.4 SEC (11.4-15.4)
[2017-03-13 04:47] LABS: ABSOLUTE BASOPHILS # (AUTO) 0.1 10^3/uL (0.0-0.2); ABSOLUTE EOSINOPHILS # (AUTO) 0.1 10^3/uL (0.0-0.6); ABSOLUTE LYMPHOCYTES (AUTO) 1.7 10^3/uL (0.5-4.7); ABSOLUTE MONOCYTES (AUTO) 1.3 10^3/uL (0.1-1.4); ABSOLUTE NEUT (AUTO) 8.2 10^3/uL (1.7-8.2); BASOPHILS % (AUTO) 0.6 % (0-2); EOSINOPHILS % (AUTO) 0.6 % (0-6); HEMATOCRIT 34.3 % (37.9-51.0); HEMOGLOBIN 10.3 g/dL (13.5-17.0); HGB HCT DIFFERENCE -3.4; LYMPHOCYTES % (AUTO) 15.1 % (13-45); MEAN CORPUSCULAR HEMOGLOBIN 20.4 pg (27.0-33.4); MEAN CORPUSCULAR VOLUME 68 fl (80-97); MONOCYTES % (AUTO) 11.2 % (3-13); RED BLOOD COUNT 5.04 10^6/uL (4.35-5.55); SEGMENTED NEUTROPHILS % (AUTO) 72.5 % (42-78); WHITE BLOOD COUNT 11.3 10^3/uL (4.0-10.5)
[2017-03-13 05:01] LABS: ANISOCYTOSIS 4+; HYPOCHROMASIA 1+; POIKILOCYTOSIS SLIGHT; POLYCHROMASIA SLIGHT
[2017-03-13 05:02] LABS: ANION GAP 11 (5-19); BLOOD UREA NITROGEN 15 mg/dL (7-20); CALCIUM 8.8 mg/dL (8.4-10.2); CARBON DIOXIDE 33 mmol/L (22-30); CHLORIDE 95 mmol/L (98-107); CREATININE RESULT 0.86 mg/dL (0.52-1.25); GLUCOSE 115 mg/dL (75-110); MICROCYTOSIS 1+; POTASSIUM 4.3 mmol/L (3.6-5.0); SODIUM 138.5 mmol/L (137-145)
[2017-03-13 05:03] LABS: OVALOCYTES SLIGHT; STOMATOCYTES SLIGHT
[2017-03-13] MEDS: PANTOPRAZOLE SODIUM 40 MG VIAL IV SCH (05:06)
[2017-03-13] MEDS: HYDRALAZINE HCL 50 MG TABLET PO SCH ×3 (05:06→21:53)
[2017-03-13] MEDS ORDERED: RINGERS SOLUTION,LACTATED 1,000 ML IV PRN ×2 (08:00→08:33)
[2017-03-13] MEDS ORDERED: PROPOFOL INJ 200 MG/20 ML VIAL IV ONE (11:52)
[2017-03-13] MEDS ORDERED: FENTANYL CITRATE INJ/PF 100 MCG/2 ML AMPUL IV PRN ×2 (12:11)
--- NOTE | 2017-03-13 13:17 | Operative Report ---
Operative Report DATE OF SURGERY: 03/13/17 Operative Report: The risks, benefits and alternatives of the procedure including risks of bleeding, perforation requiring surgery are explained to the patient detail and informed consent is obtained. Patient is taken to to the operating room and placed in the left lateral decubital position. Timeout is called. Propofol medications administered. A rectal examination was done which did not reveal any masses tears or fissures an Olympus videoscope was inserted patient's rectum the scope was then advanced all the way to the cecum. Prep is bad. The scope was then sequentially pulled back out via the rest segments of the colon including the ascending colon, hepatic flexure, transverse colon, splenic flexure, descending colon and finally into the rectosigmoid portions of the colon. Retroflexion maneuvers performed. The risks benefits and alternatives of the procedure explained to the patient in detail and informed consent is obtained that GIF Olympus video scope was inserted into the patient's mouth and hypopharynx the esophagus is identified intubated and insufflated the scope was then advanced through the esophagus stomach and duodenum retroflexion maneuver is done the esophagus stomach and first and second portions of the duodenum examined PREOPERATIVE DIAGNOSIS: Iron deficiency anemia. GI bleeding POSTOPERATIVE DIAGNOSIS: Gastritis status post biopsy rule out Helicobacter pylori. Right-sided colon mass suspicious for adenocarcinoma. Status post biopsy. Status post tattoo for location during surgery OPERATION: Colonoscopy with submucosal injection. Colonoscopy with biopsy. EGD with biopsy SURGEON: ARIANNA RUBIN ANESTHESIA: LMAC TISSUE REMOVED OR ALTERED: As described above COMPLICATIONS: None. ESTIMATED BLOOD LOSS: none. INTRAOPERATIVE FINDINGS: Prep in the colon inspected. Was fortunate to find right-sided lesion. PROCEDURE: Patient tolerated the procedure well. No immediate post procedure complications are noted. Patient sent back to his room in good condition. Resume previous diet. Resume previous activity level. Surgical referral needed CT scan to rule out metastases We'll await on biopsies
[2017-03-13] MEDS: LISINOPRIL 10 MG TABLET PO SCH (14:05)
[2017-03-13] MEDS: CETIRIZINE 10 MG TABLET PO SCH (14:05)
[2017-03-13] MEDS: AMLODIPINE BESYLATE 10 MG TABLET PO SCH (14:05)
[2017-03-13] MEDS: CYANOCOBALAMIN (VITAMIN B-12) INJ 1000 MCG/1 ML VIAL IM SCH (14:07)
[2017-03-13] MEDS: FLUTICASONE/SALMETEROL DISKUS 250-50 MCG/DOSE IH SCH ×2 (14:08→21:52)
--- NOTE | 2017-03-13 15:45 | PDOC PROGRESS REPORT ---
Subjective Progress Note for:: 03/13/17 Subjective:: Patient underwent upper and lower endoscopy today and was found to have a cecal mass. This is likely the source of patient's lower GI bleeding. This was discussed with both patient and his 3 daughters who are present. Patient continues to have loose stool from prep. He reports that he is hungry. Patient denies chest pain, shortness of breath, abdominal pain, nausea, vomiting , fevers, chills, constipation, headache, new onset weakness. Physical Exam Vital Signs: Temp Pulse Resp BP Pulse Ox 99.3 F 81 18 147/48 H 98 03/13/17 03:54 03/13/17 07:00 03/13/17 03:54 03/13/17 03:54 03/13/17 07:22 Intake & Output 03/12/17 03/13/17 03/14/17 06:59 06:59 06:59 Intake Total 2110 1020 Output Total 5110 650 Balance -3000 370 Weight 140.5 kg 140.5 kg Exam: General: Awake alert, no acute respiratory distress HEENT: AT/NC, PERRL, EOMI, oropharynx is moist, pink, no scleral icterus, right eye conjunctival injection Neck: No JVD, trachea midline Chest: Diminished bases, Clear to auscultation bilaterally, no wheezes rhonchi or rales CV: Regular rate and rhythm, normal S1 and S2, no murmur, rub, or gallop Abdomen: Soft, nontender to palpation, mildly distended, active bowel sounds; no rebound, rigidity, or guarding Extremities: No cyanosis, clubbing; chronic lymphedema, 2+ pitting edema Neuro: Cranial nerves II through XII are grossly intact without focal deficits Psych: Depressed Results Laboratory Results: 03/13/17 04:12 03/13/17 04:12 03/13/17 03/13/17 04:12 04:12 WBC 11.3 H RBC 5.04 Hgb 10.3 L Hct 34.3 L MCV 68 L MCH 20.4 L MCHC 30.0 L RDW 28.0 H Plt Count 425 Seg Neutrophils % 72.5 Lymphocytes % 15.1 Monocytes % 11.2 Eosinophils % 0.6 Basophils % 0.6 Absolute Neutrophils 8.2 Absolute Lymphocytes 1.7 Absolute Monocytes 1.3 Absolute Eosinophils 0.1 Absolute Basophils 0.1 Sodium 138.5 Potassium 4.3 Chloride 95 L Carbon Dioxide 33 H Anion Gap 11 BUN 15 Creatinine 0.86 Est GFR ( Amer) > 60 Est GFR (Non-Af Amer) > 60 Glucose 115 H Calcium 8.8 03/11/17 08:45 Nasophary (Mrsa Only) MRSA Surveillance Culture - Final MRSA RECOVERED 03/10/17 03/10/17 03/11/17 21:10 21:10 11:49 Creatine Kinase 32 L 39 L CK-MB (CK-2) 1.05 Troponin I < 0.012 Impressions: Abdomen/Pelvis CT 03/10/17 00:00 IMPRESSION: NO SIGNIFICANT OR ACUTE ABDOMINAL PROCESS. Chest X-Ray 03/12/17 00:00 IMPRESSION: Cardiomegaly. No acute infiltrates Assessment & Plan - Diagnosis (1) Cecum mass Is this a current diagnosis for this admission?: YesPlan: At this time, have discussed this with both his daughters and and himself. Likely the source of bleeding. Stop Effient permanently. Pending biopsy results. Patient is a poor candidate at this time for intervention either surgical or pharmacologic due to his poor functional status. (2) Hypertensive urgency Is this a current diagnosis for this admission?: YesPlan: In the process of transitioning patient to clonidine patch, continue when necessary clonidine. Continue scheduled hydralazine and Norvasc. (3) Acute blood loss anemia Is this a current diagnosis for this admission?: YesPlan: Currently stable. Likely secondary to Effient use an underlying cecal mass. Will continue to keep patient hemoglobin near 10. Patient also suffers from iron deficiency and vitamin B-12 deficiency. Will give patient iron infusion and continue with daily B-12 injections. (4) CAD (coronary artery disease) Qualifiers: Coronary Disease-Associated Artery/Lesion type: [place] artery [place] vs. transplanted heart: [place] heart Associated angina: without angina Qualified Code(s): I25.10 - Atherosclerotic heart disease of [place] coronary artery without angina pectoris Is this a current diagnosis for this admission?: Yes (5) Diabetes mellitus Qualifiers: Diabetes mellitus type: type 2 Diabetes mellitus complication status: without complication Diabetes mellitus termite control representative insulin use: without prison use Qualified Code(s): E11.9 - Type 2 diabetes mellitus without complications Is this a current diagnosis for this admission?: NoPlan: Patient has well-controlled fasting glucoses. He is on no medication for this at this time. (6) HLD (hyperlipidemia) Qualifiers: Hyperlipidemia type: unspecified Qualified Code(s): E78.5 - Hyperlipidemia, unspecified Is this a current diagnosis for this admission?: YesPlan: Will stop patient's statin due to attempts to decrease polypharmacy. (7) Chronic acquired lymphedema Is this a current diagnosis for this admission?: YesPlan: Continue to wrap legs. Use Unna boot at home (8) Situational depression Is this a current diagnosis for this admission?: YesPlan: Will initiate patient on Prozac. Have discussed with patient's daughters and anticipate no response for several weeks. Will monitor for worsening mood. (9) Morbid obesity Qualifiers: Obesity type: due to excess calories Qualified Code(s): E66.01 - Morbid (severe) obesity due to excess calories Is this a current diagnosis for this admission?: Yes (10) Ambulatory dysfunction Is this a current diagnosis for this admission?: YesPlan: Patient is barely able to participate in his own care at this point. Family agrees patient will benefit from rehabilitation and requesting Sukumar - Time Time Spent with patient: 35 or more minutes Medications reviewed and adjusted accordingly: Yes
[2017-03-13] MEDS ORDERED: IRON SUCROSE COMPLEX INJ/PF 100 MG/5 ML SDV IV ONE (16:00)
[2017-03-13] MEDS ORDERED: FUROSEMIDE 40 MG TABLET PO ONE (16:00)
[2017-03-13] MEDS: ACETAMINOPHEN 325 MG TABLET PO PRN (20:47)
[2017-03-13 21:43] LABS: APPEARANCE,URINE SLIGHTLY-CLOUDY; BILIRUBIN,URINE NEGATIVE (NEGATIVE); GLUCOSE, URINE NEGATIVE (NEGATIVE); KETONES,URINE NEGATIVE (NEGATIVE); LEUKOCYTE ESTERASE,URINE NEGATIVE (NEGATIVE); NITRITE,URINE NEGATIVE (NEGATIVE); PROTEIN,URINE NEGATIVE (NEGATIVE); URINE SPECIFIC GRAVITY 1.015; UROBILINOGEN,URINE NEGATIVE mg/dL (<2.0)
[2017-03-14] MEDS: ERYTHROMYCIN 0.5% OPH OINTMENT 3.5 GM TUBE OD SCH ×3 (05:26→19:26)
[2017-03-14] MEDS: HYDRALAZINE HCL 50 MG TABLET PO SCH ×3 (05:26→21:38)
[2017-03-14] MEDS: LANSOPRAZOLE 30 MG TAB.RAP.DR PO SCH (05:26)
[2017-03-14] MEDS ORDERED: CLONIDINE HCL 0.1 MG TABLET PO PRN (07:21)
[2017-03-14 08:53] LABS: ABSOLUTE BASOPHILS # (AUTO) 0.1 10^3/uL (0.0-0.2); ABSOLUTE LYMPHOCYTES (AUTO) 0.9 10^3/uL (0.5-4.7); ABSOLUTE MONOCYTES (AUTO) 0.9 10^3/uL (0.1-1.4); ABSOLUTE NEUT (AUTO) 7.3 10^3/uL (1.7-8.2); BASOPHILS % (AUTO) 1.5 % (0-2); EOSINOPHILS % (AUTO) 0.2 % (0-6); MEAN CORPUSCULAR HEMOGLOBIN 20.9 pg (27.0-33.4); MEAN CORPUSCULAR HGB CONC 30.2 g/dL (32.0-36.0); MEAN CORPUSCULAR VOLUME 69 fl (80-97); MONOCYTES % (AUTO) 9.5 % (3-13); RED BLOOD COUNT 4.76 10^6/uL (4.35-5.55); RED CELL DISTRIBUTION WIDTH 28.4 % (11.5-14.0); SEGMENTED NEUTROPHILS % (AUTO) 78.8 % (42-78); WHITE BLOOD COUNT 9.2 10^3/uL (4.0-10.5)
[2017-03-14 09:25] LABS: ANISOCYTOSIS 2+; HYPOCHROMASIA 2+; MICROCYTOSIS 2+; POLYCHROMASIA SLIGHT
[2017-03-14 09:26] LABS: OVALOCYTES SLIGHT; POIKILOCYTOSIS SLIGHT
[2017-03-14] MEDS ORDERED: FLUOXETINE HCL 20 MG CAPSULE PO SCH (10:00)
[2017-03-14] MEDS: AMLODIPINE BESYLATE 10 MG TABLET PO SCH (10:42)
[2017-03-14] MEDS: CETIRIZINE 10 MG TABLET PO SCH (10:43)
[2017-03-14] MEDS: LISINOPRIL 10 MG TABLET PO SCH (10:43)
[2017-03-14] MEDS: FLUTICASONE/SALMETEROL DISKUS 250-50 MCG/DOSE IH SCH ×2 (10:43→21:38)
[2017-03-14] MEDS: CYANOCOBALAMIN (VITAMIN B-12) INJ 1000 MCG/1 ML VIAL IM SCH (13:50)
--- NOTE | 2017-03-14 14:20 | PDOC PROGRESS REPORT ---
Subjective Progress Note for:: 03/14/17 Subjective:: Patient had transient episode of confusion this morning and didn't know he was in the hospital or why he was here. Patient's family reminded him why he was here. He has been noncompliant with his home CPAP since admission. Patient does report that he is slightly short of breath, but he is currently semireclined and this is not a normal position for him. He reportedly sleeps in his recliner. Patient denies chest pain, abdominal pain, nausea, vomiting, fevers, chills, diarrhea, constipation, headache, new onset weakness. Physical Exam Vital Signs: Temp Pulse Resp BP Pulse Ox 98.7 F 80 18 172/46 H 97 03/14/17 11:27 03/14/17 11:27 03/14/17 11:27 03/14/17 11:27 03/14/17 11:27 Intake & Output 03/13/17 03/14/17 03/15/17 06:59 06:59 06:59 Intake Total 1020 1300 Output Total 650 475 Balance 370 825 Weight 140.5 kg 143 kg Exam: General: Awake alert, no acute respiratory distress HEENT: AT/NC, PERRL, EOMI, oropharynx is moist, pink, no scleral icterus, right eye conjunctival injection Neck: No JVD, trachea midline Chest: Diminished bases, Clear to auscultation bilaterally, no wheezes rhonchi or rales CV: Regular rate and rhythm, normal S1 and S2, no murmur, rub, or gallop Abdomen: Soft, nontender to palpation, mildly distended, active bowel sounds; no rebound, rigidity, or guarding Extremities: No cyanosis, clubbing; chronic lymphedema, 2+ pitting edema Neuro: Cranial nerves II through XII are grossly intact without focal deficits Psych: Depressed Results Laboratory Results: 03/14/17 08:28 03/13/17 04:12 03/13/17 03/14/17 20:50 08:28 WBC 9.2 RBC 4.76 Hgb 10.0 L Hct 33.0 L MCV 69 L MCH 20.9 L MCHC 30.2 L RDW 28.4 H Plt Count 413 Seg Neutrophils % 78.8 H Lymphocytes % 10.0 L Monocytes % 9.5 Eosinophils % 0.2 Basophils % 1.5 Absolute Neutrophils 7.3 Absolute Lymphocytes 0.9 Absolute Monocytes 0.9 Absolute Eosinophils 0.0 Absolute Basophils 0.1 Urine Color YELLOW Urine Appearance SLIGHTLY-CLOUDY Urine pH 5.0 Ur Specific [place] 1.015 Urine Protein NEGATIVE Urine Glucose (UA) NEGATIVE Urine Ketones NEGATIVE Urine Blood NEGATIVE Urine Nitrite NEGATIVE Ur Leukocyte Esterase NEGATIVE Urine WBC (Auto) 2 Urine RBC (Auto) 0 03/10/17 03/10/17 03/11/17 21:10 21:10 11:49 Creatine Kinase 32 L 39 L CK-MB (CK-2) 1.05 Troponin I < 0.012 Impressions: Abdomen/Pelvis CT 03/10/17 00:00 IMPRESSION: NO SIGNIFICANT OR ACUTE ABDOMINAL PROCESS. Chest X-Ray 03/12/17 00:00 IMPRESSION: Cardiomegaly. No acute infiltrates Assessment & Plan - Diagnosis (1) Acute encephalopathy Is this a current diagnosis for this admission?: YesPlan: Likely secondary to hypercapnia from noncompliance with CPAP and recent Prozac administration. Will stop Prozac. Place patient on CPAP. Current morning laboratory studies vitals are all stable. Will monitor for any acute changes. Also this could be secondary to his grief reaction. (2) Cecum mass Is this a current diagnosis for this admission?: YesPlan: At this time, have discussed this with both his daughters and and himself. Likely the source of bleeding. Stop Effient permanently. Pending biopsy results. Patient is a poor candidate at this time for intervention either surgical or pharmacologic due to his poor functional status. (3) Hypertensive urgency Is this a current diagnosis for this admission?: YesPlan: In the process of transitioning patient to clonidine patch, decrease prn clonidine. Continue scheduled hydralazine and Norvasc. (4) Acute blood loss anemia Is this a current diagnosis for this admission?: YesPlan: Currently stable. Likely secondary to Effient use an underlying cecal mass. Will continue to keep patient hemoglobin near 10. Patient also suffers from iron deficiency and vitamin B-12 deficiency. has received both Venofer and 6 units of packed red blood cells and continue with daily B-12 injections. (5) CAD (coronary artery disease) Qualifiers: Coronary Disease-Associated Artery/Lesion type: [place] artery [place] vs. transplanted heart: [place] heart Associated angina: without angina Qualified Code(s): I25.10 - Atherosclerotic heart disease of [place] coronary artery without angina pectoris Is this a current diagnosis for this admission?: Yes (6) HLD (hyperlipidemia) Qualifiers: Hyperlipidemia type: unspecified Qualified Code(s): E78.5 - Hyperlipidemia, unspecified Is this a current diagnosis for this admission?: YesPlan: Have stopped with patient and family consent patient's statin (7) Chronic acquired lymphedema Is this a current diagnosis for this admission?: YesPlan: Continue to wrap legs. Use Unna boot at home (8) Situational depression Is this a current diagnosis for this admission?: YesPlan: Patient does not appear to tolerated Prozac and will stop this. Recommend psychotherapy for this patient. (9) Morbid obesity Qualifiers: Obesity type: due to excess calories Qualified Code(s): E66.01 - Morbid (severe) obesity due to excess calories Is this a current diagnosis for this admission?: Yes (10) Ambulatory dysfunction Is this a current diagnosis for this admission?: YesPlan: Patient is barely able to participate in his own care at this point. Family agrees patient will benefit from rehabilitation and requesting Sukumar - Time Time Spent with patient: 35 or more minutes Medications reviewed and adjusted accordingly: Yes Anticipated discharge: Acute Rehab Within: when bed available
[2017-03-15] MEDS: ERYTHROMYCIN 0.5% OPH OINTMENT 3.5 GM TUBE OD SCH ×5 (00:16→23:55)
[2017-03-15] MEDS: LANSOPRAZOLE 30 MG TAB.RAP.DR PO SCH (06:09)
[2017-03-15] MEDS: HYDRALAZINE HCL 50 MG TABLET PO SCH ×3 (06:10→22:00)
[2017-03-15 07:29] LABS: ANION GAP 9 (5-19); BLOOD UREA NITROGEN 22 mg/dL (7-20); CALCIUM 9.4 mg/dL (8.4-10.2); CARBON DIOXIDE 32 mmol/L (22-30); CHLORIDE 97 mmol/L (98-107); CREATININE RESULT 0.86 mg/dL (0.52-1.25); GLUCOSE 125 mg/dL (75-110); POTASSIUM 3.9 mmol/L (3.6-5.0); SODIUM 137.5 mmol/L (137-145)
[2017-03-15 07:32] LABS: ABSOLUTE BASOPHILS # (AUTO) 0.2 10^3/uL (0.0-0.2); ABSOLUTE EOSINOPHILS # (AUTO) 0.1 10^3/uL (0.0-0.6); ABSOLUTE LYMPHOCYTES (AUTO) 1.1 10^3/uL (0.5-4.7); ABSOLUTE MONOCYTES (AUTO) 0.9 10^3/uL (0.1-1.4); ABSOLUTE NEUT (AUTO) 7.6 10^3/uL (1.7-8.2); BASOPHILS % (AUTO) 1.7 % (0-2); EOSINOPHILS % (AUTO) 1.2 % (0-6); HEMATOCRIT 32.9 % (37.9-51.0); HEMOGLOBIN 9.9 g/dL (13.5-17.0); HGB HCT DIFFERENCE -3.2; LYMPHOCYTES % (AUTO) 10.7 % (13-45); MEAN CORPUSCULAR HEMOGLOBIN 21.3 pg (27.0-33.4); MEAN CORPUSCULAR VOLUME 71 fl (80-97); MONOCYTES % (AUTO) 9.5 % (3-13); RED BLOOD COUNT 4.63 10^6/uL (4.35-5.55); RED CELL DISTRIBUTION WIDTH 29.9 % (11.5-14.0); SEGMENTED NEUTROPHILS % (AUTO) 76.9 % (42-78); WHITE BLOOD COUNT 9.9 10^3/uL (4.0-10.5)
[2017-03-15 08:01] LABS: ANISOCYTOSIS 2+; HYPOCHROMASIA 2+; OVALOCYTES SLIGHT; POIKILOCYTOSIS SLIGHT; POLYCHROMASIA SLIGHT; TARGET CELLS SLIGHT
[2017-03-15] MEDS: FLUTICASONE/SALMETEROL DISKUS 250-50 MCG/DOSE IH SCH ×2 (10:05→22:00)
[2017-03-15] MEDS: CYANOCOBALAMIN (VITAMIN B-12) INJ 1000 MCG/1 ML VIAL IM SCH (10:05)
[2017-03-15] MEDS: LISINOPRIL 10 MG TABLET PO SCH (10:06)
[2017-03-15] MEDS: AMLODIPINE BESYLATE 10 MG TABLET PO SCH (10:06)
[2017-03-15] MEDS: CETIRIZINE 10 MG TABLET PO SCH (10:07)
--- NOTE | 2017-03-15 13:25 | PDOC PROGRESS REPORT ---
Subjective Progress Note for:: 03/15/17 Subjective:: Patient reports he's feeling better today. Patient did report dizziness when sitting on the side of the bed. Patient has not had his legs wrapped yesterday. He also is unable to find his nasal CPAP mask. He reports having yesterday. He reports that he only left it on for a few minutes and then immediately took it off. Patient does report that he is slightly short of breath, but he is currently semireclined and this is not a normal position for him. He reportedly sleeps in his recliner. Patient denies chest pain, abdominal pain, nausea, vomiting, fevers, chills, diarrhea, constipation, headache, new onset weakness. Physical Exam Vital Signs: Temp Pulse Resp BP Pulse Ox 98.1 F 77 19 154/49 H 96 03/15/17 07:45 03/15/17 07:45 03/15/17 07:45 03/15/17 07:45 03/15/17 07:45 Intake & Output 03/14/17 03/15/17 03/16/17 06:59 06:59 06:59 Intake Total 1300 600 Output Total 475 250 Balance 825 350 Weight 143 kg 140.1 kg Exam: General: Awake alert, no acute respiratory distress HEENT: AT/NC, PERRL, EOMI, oropharynx is moist, pink, no scleral icterus, clear conjunctiva Neck: No JVD, trachea midline Chest: Diminished bases, Clear to auscultation bilaterally, no wheezes rhonchi or rales, limited by body habitus and effort CV: Regular rate and rhythm, normal S1 and S2, no murmur, rub, or gallop Abdomen: Soft, nontender to palpation, mildly distended, active bowel sounds; no rebound, rigidity, or guarding Extremities: No cyanosis, clubbing; chronic lymphedema, 3+ pitting edema Neuro: Cranial nerves II through XII are grossly intact without focal deficits Results Laboratory Results: 03/15/17 06:51 03/15/17 06:51 03/15/17 03/15/17 06:51 06:51 WBC 9.9 RBC 4.63 Hgb 9.9 L Hct 32.9 L MCV 71 L MCH 21.3 L MCHC 30.0 L RDW 29.9 H Plt Count 372 Seg Neutrophils % 76.9 Lymphocytes % 10.7 L Monocytes % 9.5 Eosinophils % 1.2 Basophils % 1.7 Absolute Neutrophils 7.6 Absolute Lymphocytes 1.1 Absolute Monocytes 0.9 Absolute Eosinophils 0.1 Absolute Basophils 0.2 Sodium 137.5 Potassium 3.9 Chloride 97 L Carbon Dioxide 32 H Anion Gap 9 BUN 22 H Creatinine 0.86 Est GFR ( Amer) > 60 Est GFR (Non-Af Amer) > 60 Glucose 125 H Calcium 9.4 03/10/17 03/10/17 03/11/17 21:10 21:10 11:49 Creatine Kinase 32 L 39 L CK-MB (CK-2) 1.05 Troponin I < 0.012 Impressions: Abdomen/Pelvis CT 03/10/17 00:00 IMPRESSION: NO SIGNIFICANT OR ACUTE ABDOMINAL PROCESS. Chest X-Ray 03/12/17 00:00 IMPRESSION: Cardiomegaly. No acute infiltrates Assessment & Plan - Diagnosis (1) Acute encephalopathy Is this a current diagnosis for this admission?: YesPlan: Resolved. Patient is back to baseline. Patient had a transient alteration in awareness and this has improved. (2) Cecum mass Is this a current diagnosis for this admission?: YesPlan: At this time, have discussed this with both his daughters and and himself. Likely the source of bleeding. Stop Effient permanently. Pending biopsy results. Patient is a poor candidate at this time for intervention either surgical or pharmacologic due to his poor functional status. Patient will likely not pursue treatment for this. (3) Hypertensive urgency Is this a current diagnosis for this admission?: YesPlan: In the process of transitioning patient to clonidine patch, stop prn clonidine. Continue scheduled hydralazine and Norvasc. (4) Acute blood loss anemia Is this a current diagnosis for this admission?: YesPlan: Currently stable. Likely secondary to Effient use an underlying cecal mass. Will continue to keep patient hemoglobin near 10. Patient also suffers from iron deficiency and vitamin B-12 deficiency. Patient has received both Venofer and 6 units of packed red blood cells and continue with daily B-12. (5) CAD (coronary artery disease) Qualifiers: Coronary Disease-Associated Artery/Lesion type: [place] artery [place] vs. transplanted heart: [place] heart Associated angina: without angina Qualified Code(s): I25.10 - Atherosclerotic heart disease of [place] coronary artery without angina pectoris Is this a current diagnosis for this admission?: Yes (6) HLD (hyperlipidemia) Qualifiers: Hyperlipidemia type: unspecified Qualified Code(s): E78.5 - Hyperlipidemia, unspecified Is this a current diagnosis for this admission?: YesPlan: Have stopped with patient and family consent patient's statin (7) Chronic acquired lymphedema Is this a current diagnosis for this admission?: YesPlan: Continue to wrap legs. Use Unna boot at home (8) Situational depression Is this a current diagnosis for this admission?: YesPlan: Patient does not appear to tolerated Prozac and will stop this. Recommend psychotherapy for this patient. (9) Morbid obesity Qualifiers: Obesity type: with alveolar hypoventilation Qualified Code(s): E66.2 - Morbid (severe) obesity with alveolar hypoventilation Is this a current diagnosis for this admission?: Yes (10) Ambulatory dysfunction Is this a current diagnosis for this admission?: YesPlan: Patient is barely able to participate in his own care at this point. Family agrees patient will benefit from rehabilitation and requesting Sukumar - Time Time Spent with patient: 25-34 minutes Medications reviewed and adjusted accordingly: Yes
[2017-03-16] MEDS: ERYTHROMYCIN 0.5% OPH OINTMENT 3.5 GM TUBE OD SCH ×4 (05:10→23:01)
[2017-03-16] MEDS: HYDRALAZINE HCL 50 MG TABLET PO SCH ×3 (05:11→21:18)
[2017-03-16] MEDS: LANSOPRAZOLE 30 MG TAB.RAP.DR PO SCH (05:12)
[2017-03-16 09:33] LABS: ABSOLUTE BASOPHILS # (AUTO) 0.1 10^3/uL (0.0-0.2); ABSOLUTE EOSINOPHILS # (AUTO) 0.1 10^3/uL (0.0-0.6); ABSOLUTE LYMPHOCYTES (AUTO) 0.9 10^3/uL (0.5-4.7); ABSOLUTE MONOCYTES (AUTO) 0.8 10^3/uL (0.1-1.4); ABSOLUTE NEUT (AUTO) 4.9 10^3/uL (1.7-8.2); BASOPHILS % (AUTO) 1.4 % (0-2); EOSINOPHILS % (AUTO) 0.8 % (0-6); HEMATOCRIT 32.7 % (37.9-51.0); HEMOGLOBIN 10.2 g/dL (13.5-17.0); HGB HCT DIFFERENCE -2.1; LYMPHOCYTES % (AUTO) 13.4 % (13-45); MEAN CORPUSCULAR HGB CONC 31.1 g/dL (32.0-36.0); MEAN CORPUSCULAR VOLUME 71 fl (80-97); MONOCYTES % (AUTO) 11.6 % (3-13); RED BLOOD COUNT 4.62 10^6/uL (4.35-5.55); RED CELL DISTRIBUTION WIDTH 29.8 % (11.5-14.0); SEGMENTED NEUTROPHILS % (AUTO) 72.8 % (42-78); WHITE BLOOD COUNT 6.7 10^3/uL (4.0-10.5)
[2017-03-16] MEDS: CETIRIZINE 10 MG TABLET PO SCH (09:57)
[2017-03-16] MEDS: AMLODIPINE BESYLATE 10 MG TABLET PO SCH (09:57)
[2017-03-16] MEDS: FLUTICASONE/SALMETEROL DISKUS 250-50 MCG/DOSE IH SCH ×2 (09:57→21:18)
[2017-03-16] MEDS: CYANOCOBALAMIN (VITAMIN B-12) 1,000 MCG TABLET PO SCH (09:57)
[2017-03-16] MEDS: LISINOPRIL 10 MG TABLET PO SCH (09:57)
[2017-03-16 10:03] LABS: ANISOCYTOSIS 3+; HYPOCHROMASIA 2+; MICROCYTOSIS 2+; OVALOCYTES SLIGHT; POIKILOCYTOSIS SLIGHT; POLYCHROMASIA SLIGHT; TARGET CELLS 1+; TEAR DROP CELLS SLIGHT
--- NOTE | 2017-03-16 12:57 | PDOC PROGRESS REPORT ---
Subjective Progress Note for:: 03/16/17 Subjective:: Patient reports he's feeling better today. Patient did report dizziness when sitting on the side of the bed. Patient denies chest pain, abdominal pain, nausea, vomiting, fevers, chills, diarrhea, headache, new onset weakness. Patient reports that he has not had a bowel movement since his colonoscopy. Physical Exam Vital Signs: Temp Pulse Resp BP Pulse Ox 97.8 F 80 21 H 137/98 H 97 03/16/17 07:33 03/16/17 07:33 03/16/17 07:33 03/16/17 07:33 03/16/17 07:33 Intake & Output 03/15/17 03/16/17 03/17/17 06:59 06:59 06:59 Intake Total 600 1300 Output Total 250 1275 Balance 350 25 Weight 140.1 kg 144.8 kg Exam: General: Awake alert, no acute respiratory distress HEENT: AT/NC, PERRL, EOMI, oropharynx is moist, pink, no scleral icterus, clear conjunctiva Neck: No JVD, trachea midline Chest: Diminished bases, Clear to auscultation bilaterally, no wheezes rhonchi or rales, limited by body habitus and effort CV: Regular rate and rhythm, normal S1 and S2, no murmur, rub, or gallop Abdomen: Soft, nontender to palpation, mildly distended, active bowel sounds; no rebound, rigidity, or guarding Extremities: No cyanosis, clubbing; chronic lymphedema, 3+ pitting edema Neuro: Cranial nerves II through XII are grossly intact without focal deficits Results Laboratory Results: 03/16/17 08:59 03/15/17 06:51 03/16/17 08:59 WBC 6.7 RBC 4.62 Hgb 10.2 L Hct 32.7 L MCV 71 L MCH 22.0 L MCHC 31.1 L RDW 29.8 H Plt Count 379 Seg Neutrophils % 72.8 Lymphocytes % 13.4 Monocytes % 11.6 Eosinophils % 0.8 Basophils % 1.4 Absolute Neutrophils 4.9 Absolute Lymphocytes 0.9 Absolute Monocytes 0.8 Absolute Eosinophils 0.1 Absolute Basophils 0.1 03/10/17 03/10/17 03/11/17 21:10 21:10 11:49 Creatine Kinase 32 L 39 L CK-MB (CK-2) 1.05 Troponin I < 0.012 Impressions: Abdomen/Pelvis CT 03/10/17 00:00 IMPRESSION: NO SIGNIFICANT OR ACUTE ABDOMINAL PROCESS. Chest X-Ray 03/12/17 00:00 IMPRESSION: Cardiomegaly. No acute infiltrates Assessment & Plan - Diagnosis (1) Acute encephalopathy Is this a current diagnosis for this admission?: YesPlan: Resolved. Patient is back to baseline. Patient had a transient alteration in awareness and this has improved. (2) Cecum mass Is this a current diagnosis for this admission?: YesPlan: At this time, have discussed this with both his daughters and and himself. Likely the source of bleeding. Stop Effient permanently. Pending biopsy results. Patient is a poor candidate at this time for intervention either surgical or pharmacologic due to his poor functional status. Patient will likely not pursue treatment for this. (3) Hypertensive urgency Is this a current diagnosis for this admission?: YesPlan: Resolved. Patient's blood pressures have been at goal. He is having dizziness with this, but feel this is medication related as well as orthostatic. (4) Acute blood loss anemia Is this a current diagnosis for this admission?: YesPlan: Currently stable. Likely secondary to Effient use an underlying cecal mass. Will continue to keep patient hemoglobin near 10. Patient also suffers from iron deficiency and vitamin B-12 deficiency. Patient has received both Venofer and 6 units of packed red blood cells and continue with daily B-12. (5) CAD (coronary artery disease) Qualifiers: Coronary Disease-Associated Artery/Lesion type: [place] artery [place] vs. transplanted heart: [place] heart Associated angina: without angina Qualified Code(s): I25.10 - Atherosclerotic heart disease of [place] coronary artery without angina pectoris Is this a current diagnosis for this admission?: Yes (6) HLD (hyperlipidemia) Qualifiers: Hyperlipidemia type: unspecified Qualified Code(s): E78.5 - Hyperlipidemia, unspecified Is this a current diagnosis for this admission?: YesPlan: Have stopped with patient and family consent patient's statin (7) Chronic acquired lymphedema Is this a current diagnosis for this admission?: YesPlan: Continue to wrap legs. May use Unna boot from home (8) Situational depression Is this a current diagnosis for this admission?: YesPlan: Patient does not appear to tolerated Prozac and will stop this. Recommend psychotherapy for this patient. (9) Morbid obesity Qualifiers: Obesity type: with alveolar hypoventilation Qualified Code(s): E66.2 - Morbid (severe) obesity with alveolar hypoventilation Is this a current diagnosis for this admission?: Yes (10) Ambulatory dysfunction Is this a current diagnosis for this admission?: YesPlan: Patient was able to sit himself up today. Patient is attempting to participate patient care. Family agrees patient will benefit from rehabilitation and requesting Sukumar - Time Time Spent with patient: 25-34 minutes Medications reviewed and adjusted accordingly: Yes Anticipated discharge: Acute Rehab Within: when bed available
--- NOTE | 2017-03-16 13:58 | PDOC PROGRESS REPORT ---
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 no post procedure complications spoke with Dr England last week does not appear to be a surgical candidate although would get formal surgical consult patient tolerating his diet no complaints of abdominal pain Physical Exam Vital Signs: Temp Pulse Resp BP Pulse Ox 97.8 F 80 21 H 137/98 H 97 03/16/17 07:33 03/16/17 07:33 03/16/17 07:33 03/16/17 07:33 03/16/17 07:33 Intake & Output 03/15/17 03/16/17 03/17/17 06:59 06:59 06:59 Intake Total 600 1300 Output Total 250 1275 Balance 350 25 Weight 140.1 kg 144.8 kg General appearance: PRESENT: no acute distress, well-developed, well-nourished Head exam: PRESENT: atraumatic, normocephalic Eye exam: PRESENT: EOMI. ABSENT: scleral icterus Mouth exam: PRESENT: moist Throat exam: ABSENT: tonsillar exudate, tonsillogmegaly Neck exam: ABSENT: meningismus, tenderness, thyromegaly Respiratory exam: PRESENT: symmetrical, unlabored. ABSENT: tachypnea Cardiovascular exam: PRESENT: RRR, +S1, +S2 GI/Abdominal exam: PRESENT: soft. ABSENT: rebound, rigid, tenderness Extremities exam: ABSENT: joint swelling Musculoskeletal exam: PRESENT: full ROM Neurological exam: PRESENT: oriented to time, oriented to situation, CN II-XII grossly intact Skin exam: PRESENT: normal color. ABSENT: mottled, pallor, urticaria, vesicles Results Laboratory Results: 03/16/17 08:59 03/15/17 06:51 03/16/17 08:59 WBC 6.7 RBC 4.62 Hgb 10.2 L Hct 32.7 L MCV 71 L MCH 22.0 L MCHC 31.1 L RDW 29.8 H Plt Count 379 Seg Neutrophils % 72.8 Lymphocytes % 13.4 Monocytes % 11.6 Eosinophils % 0.8 Basophils % 1.4 Absolute Neutrophils 4.9 Absolute Lymphocytes 0.9 Absolute Monocytes 0.8 Absolute Eosinophils 0.1 Absolute Basophils 0.1 03/10/17 03/10/17 03/11/17 21:10 21:10 11:49 Creatine Kinase 32 L 39 L CK-MB (CK-2) 1.05 Troponin I < 0.012 Impressions: Abdomen/Pelvis CT 03/10/17 00:00 IMPRESSION: NO SIGNIFICANT OR ACUTE ABDOMINAL PROCESS. Chest X-Ray 03/12/17 00:00 IMPRESSION: Cardiomegaly. 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
[2017-03-16] MEDS: SODIUM CHLORIDE NASAL SPRAY 44 ML NASL SCH ×2 (15:57→21:18)
[2017-03-17] MEDS: ERYTHROMYCIN 0.5% OPH OINTMENT 3.5 GM TUBE OD SCH ×3 (05:53→18:18)
[2017-03-17] MEDS: HYDRALAZINE HCL 50 MG TABLET PO SCH ×3 (05:53→21:20)
[2017-03-17] MEDS: LANSOPRAZOLE 30 MG TAB.RAP.DR PO SCH (05:53)
[2017-03-17] MEDS ORDERED: CLONIDINE 0.2 MG/24 HR PATCH.TDWK TD SCH (10:00)
[2017-03-17] MEDS: CETIRIZINE 10 MG TABLET PO SCH (10:53)
[2017-03-17] MEDS: AMLODIPINE BESYLATE 10 MG TABLET PO SCH (10:54)
[2017-03-17] MEDS: CYANOCOBALAMIN (VITAMIN B-12) 1,000 MCG TABLET PO SCH (10:54)
[2017-03-17] MEDS: FLUTICASONE/SALMETEROL DISKUS 250-50 MCG/DOSE IH SCH ×2 (10:54→21:20)
[2017-03-17] MEDS: LISINOPRIL 10 MG TABLET PO SCH (10:54)
[2017-03-17] MEDS: SODIUM CHLORIDE NASAL SPRAY 44 ML NASL SCH ×3 (10:56→21:20)
[2017-03-17] MEDS ORDERED: MAGNESIUM CITRATE 296 ML BOTTLE PO ONE (14:33)
--- NOTE | 2017-03-17 14:35 | PDOC PROGRESS REPORT ---
Subjective Progress Note for:: 03/17/17 Subjective:: Patient reports he's feeling better today. Patient denies chest pain, abdominal pain, nausea, vomiting, fevers, chills, diarrhea, headache, new onset weakness. Patient reports that he has not had a bowel movement since his colonoscopy. Physical Exam Vital Signs: Temp Pulse Resp BP Pulse Ox 98.0 F 72 20 132/96 H 94 03/17/17 12:04 03/17/17 12:04 03/17/17 12:04 03/17/17 12:04 03/17/17 12:04 Intake & Output 03/16/17 03/17/17 03/18/17 06:59 06:59 06:59 Intake Total 1300 967 Output Total 1275 225 Balance 25 742 Weight 144.8 kg 143.7 kg Exam: General: Awake alert, no acute respiratory distress HEENT: AT/NC, PERRL, EOMI, oropharynx is moist, pink, no scleral icterus, clear conjunctiva Neck: No JVD, trachea midline Chest: Diminished bases, Clear to auscultation bilaterally, no wheezes rhonchi or rales, limited by body habitus and effort CV: Regular rate and rhythm, normal S1 and S2, no murmur, rub, or gallop Abdomen: Soft, nontender to palpation, mildly distended, active bowel sounds; no rebound, rigidity, or guarding Extremities: No cyanosis, clubbing; chronic lymphedema, 3+ pitting edema Neuro: Cranial nerves II through XII are grossly intact without focal deficits Results Laboratory Results: 03/16/17 08:59 03/15/17 06:51 03/10/17 03/10/17 03/11/17 21:10 21:10 11:49 Creatine Kinase 32 L 39 L CK-MB (CK-2) 1.05 Troponin I < 0.012 Impressions: Abdomen/Pelvis CT 03/10/17 00:00 IMPRESSION: NO SIGNIFICANT OR ACUTE ABDOMINAL PROCESS. Chest X-Ray 03/12/17 00:00 IMPRESSION: Cardiomegaly. No acute infiltrates Assessment & Plan - Diagnosis (1) Acute encephalopathy Is this a current diagnosis for this admission?: YesPlan: Resolved. Patient is back to baseline. Patient had a transient alteration in awareness and this has improved. (2) Cecum mass Is this a current diagnosis for this admission?: YesPlan: At this time, have discussed this with both his daughters and and himself. Likely the source of bleeding. Stop Effient permanently. Pending biopsy results. Patient is a poor candidate at this time for intervention either surgical or pharmacologic due to his poor functional status. Patient will likely not pursue treatment for this. (3) Hypertensive urgency Is this a current diagnosis for this admission?: YesPlan: Resolved. Patient's blood pressures have been at goal. He is having dizziness with this, but feel this is medication related as well as orthostatic. (4) Acute blood loss anemia Is this a current diagnosis for this admission?: YesPlan: Currently stable. Likely secondary to Effient use an underlying cecal mass. Will continue to keep patient hemoglobin near 10. Patient also suffers from iron deficiency and vitamin B-12 deficiency. Patient has received both Venofer and 6 units of packed red blood cells and continue with daily B-12. (5) CAD (coronary artery disease) Qualifiers: Coronary Disease-Associated Artery/Lesion type: [place] artery [place] vs. transplanted heart: [place] heart Associated angina: without angina Qualified Code(s): I25.10 - Atherosclerotic heart disease of [place] coronary artery without angina pectoris Is this a current diagnosis for this admission?: Yes (6) HLD (hyperlipidemia) Qualifiers: Hyperlipidemia type: unspecified Qualified Code(s): E78.5 - Hyperlipidemia, unspecified Is this a current diagnosis for this admission?: YesPlan: Have stopped with patient and family consent patient's statin (7) Chronic acquired lymphedema Is this a current diagnosis for this admission?: YesPlan: Continue to wrap legs. May use Unna boot from home (8) Situational depression Is this a current diagnosis for this admission?: YesPlan: Patient does not appear to tolerated Prozac and will stop this. Recommend psychotherapy for this patient. (9) Morbid obesity Qualifiers: Obesity type: with alveolar hypoventilation Qualified Code(s): E66.2 - Morbid (severe) obesity with alveolar hypoventilation Is this a current diagnosis for this admission?: Yes (10) Ambulatory dysfunction Is this a current diagnosis for this admission?: YesPlan: Patient was able to sit himself up today. Patient is attempting to participate patient care. Family agrees patient will benefit from rehabilitation and requesting Sukumar - Time Time Spent with patient: 25-34 minutes Medications reviewed and adjusted accordingly: Yes Anticipated discharge: Acute Rehab Within: when bed available
[2017-03-18] MEDS: ERYTHROMYCIN 0.5% OPH OINTMENT 3.5 GM TUBE OD SCH ×5 (00:56→23:21)
[2017-03-18] MEDS: HYDRALAZINE HCL 50 MG TABLET PO SCH ×3 (05:56→21:53)
[2017-03-18] MEDS: LANSOPRAZOLE 30 MG TAB.RAP.DR PO SCH (05:56)
[2017-03-18] MEDS: FLUTICASONE/SALMETEROL DISKUS 250-50 MCG/DOSE IH SCH ×2 (09:52→21:53)
[2017-03-18] MEDS: SODIUM CHLORIDE NASAL SPRAY 44 ML NASL SCH ×4 (09:52→21:53)
[2017-03-18] MEDS: CYANOCOBALAMIN (VITAMIN B-12) 1,000 MCG TABLET PO SCH (09:53)
[2017-03-18] MEDS: AMLODIPINE BESYLATE 10 MG TABLET PO SCH (09:53)
[2017-03-18] MEDS: CETIRIZINE 10 MG TABLET PO SCH (09:54)
[2017-03-18] MEDS: LISINOPRIL 10 MG TABLET PO SCH (09:54)
[2017-03-18] MEDS ORDERED: CLONIDINE 0.1 MG/24 HR PATCH.TDWK TD SCH (10:00)
--- NOTE | 2017-03-18 17:51 | PDOC PROGRESS REPORT ---
Subjective Progress Note for:: 03/18/17 Subjective:: Patient family is at bedside and we discussed his diagnosis at length. Patient has still not had a bowel movement since his colonoscopy.Patient denies chest pain, shortness of breath, abdominal pain, nausea, vomiting, fevers, chills, diarrhea, constipation, headache, new onset weakness. Physical Exam Vital Signs: Temp Pulse Resp BP Pulse Ox 97.7 F 73 21 H 164/43 H 96 03/18/17 04:00 03/18/17 04:00 03/18/17 04:00 03/18/17 04:00 03/18/17 04:00 Intake & Output 03/17/17 03/18/17 03/19/17 06:59 06:59 06:59 Intake Total 967 880 Output Total 225 850 Balance 742 30 Weight 143.7 kg Exam: General: Awake alert, no acute respiratory distress HEENT: AT/NC, PERRL, EOMI, oropharynx is moist, pink, no scleral icterus, clear conjunctiva Neck: No JVD, trachea midline Chest: Diminished bases, Clear to auscultation bilaterally, no wheezes rhonchi or rales, limited by body habitus and effort CV: Regular rate and rhythm, normal S1 and S2, no murmur, rub, or gallop Abdomen: Soft, nontender to palpation, mildly distended, active bowel sounds; no rebound, rigidity, or guarding Extremities: No cyanosis, clubbing; chronic lymphedema, 3+ pitting edema Neuro: Cranial nerves II through XII are grossly intact without focal deficits Results Laboratory Results: 03/16/17 08:59 03/15/17 06:51 03/10/17 03/10/17 03/11/17 21:10 21:10 11:49 Creatine Kinase 32 L 39 L CK-MB (CK-2) 1.05 Troponin I < 0.012 Impressions: Abdomen/Pelvis CT 03/10/17 00:00 IMPRESSION: NO SIGNIFICANT OR ACUTE ABDOMINAL PROCESS. Chest X-Ray 03/12/17 00:00 IMPRESSION: Cardiomegaly. No acute infiltrates Assessment & Plan - Diagnosis (1) Adenocarcinoma in situ Is this a current diagnosis for this admission?: YesPlan: This diagnosis was discussed with patient and his family who was present at bedside. At this time, patient is not seeking treatment either by surgery, chemotherapy, radiation. (2) Acute encephalopathy Is this a current diagnosis for this admission?: YesPlan: Resolved. Patient is back to baseline. Patient had a transient alteration in awareness and this has improved. (3) Hypertensive urgency Is this a current diagnosis for this admission?: YesPlan: Resolved. Patient's blood pressures have been at goal. He is having dizziness with this, but feel this is medication related as well as orthostatic. (4) Acute blood loss anemia Is this a current diagnosis for this admission?: YesPlan: Currently stable. Likely secondary to Effient use an underlying cecal mass. Will continue to keep patient hemoglobin near 10. Patient also suffers from iron deficiency and vitamin B-12 deficiency. Patient has received both Venofer and 6 units of packed red blood cells and continue with daily B-12. (5) CAD (coronary artery disease) Qualifiers: Coronary Disease-Associated Artery/Lesion type: [place] artery [place] vs. transplanted heart: [place] heart Associated angina: without angina Qualified Code(s): I25.10 - Atherosclerotic heart disease of [place] coronary artery without angina pectoris Is this a current diagnosis for this admission?: Yes (6) HLD (hyperlipidemia) Qualifiers: Hyperlipidemia type: unspecified Qualified Code(s): E78.5 - Hyperlipidemia, unspecified Is this a current diagnosis for this admission?: YesPlan: Have stopped with patient and family consent patient's statin (7) Chronic acquired lymphedema Is this a current diagnosis for this admission?: YesPlan: Continue to wrap legs. May use [employer] boot from home (8) Situational depression Is this a current diagnosis for this admission?: Yes (9) Morbid obesity Qualifiers: Obesity type: with alveolar hypoventilation Qualified Code(s): E66.2 - Morbid (severe) obesity with alveolar hypoventilation Is this a current diagnosis for this admission?: Yes (10) Ambulatory dysfunction Is this a current diagnosis for this admission?: Yes - Time Time Spent with patient: 35 or more minutes Medications reviewed and adjusted accordingly: Yes Anticipated discharge: Acute Rehab Within: when bed available
[2017-03-18] MEDS: CLONIDINE 0.3 MG/24 HR PATCH.TDWK TD SCH (18:15)
[2017-03-19] MEDS: HYDRALAZINE HCL 50 MG TABLET PO SCH ×2 (05:18→13:32)
[2017-03-19] MEDS: ERYTHROMYCIN 0.5% OPH OINTMENT 3.5 GM TUBE OD SCH ×2 (05:18→13:28)
[2017-03-19] MEDS: LANSOPRAZOLE 30 MG TAB.RAP.DR PO SCH (05:18)
[2017-03-19] MEDS: SODIUM CHLORIDE NASAL SPRAY 44 ML NASL SCH ×3 (08:00→15:45)
--- NOTE | 2017-03-19 09:26 | PDOC DISCHARGE SUMMARY ---
General - Admit/Disc Date/PCP Admission Date/Primary Care Provider: 03/10/17 17:19 BUZZ MARSHALL MD Discharge Date: 03/19/17 - Discharge Diagnosis (1) Adenocarcinoma in situ Is this a current diagnosis for this admission?: Yes (2) Acute encephalopathy Is this a current diagnosis for this admission?: Yes (3) Hypertensive urgency Is this a current diagnosis for this admission?: Yes (4) Acute blood loss anemia Is this a current diagnosis for this admission?: Yes (5) CAD (coronary artery disease) Is this a current diagnosis for this admission?: Yes (6) HLD (hyperlipidemia) Is this a current diagnosis for this admission?: Yes (7) Chronic acquired lymphedema Is this a current diagnosis for this admission?: Yes (8) Situational depression Is this a current diagnosis for this admission?: Yes (9) Morbid obesity Is this a current diagnosis for this admission?: Yes (10) Ambulatory dysfunction Is this a current diagnosis for this admission?: Yes - Additional Information Resuscitation Status: Do Not Resuscitate Discharge Diet: Cardiac Discharge Activity: Activity As Tolerated, Slowly Increase Activity, Supervised Activity, Weigh Daily Home Medications: Cetirizine HCl [Allergy] 10 mg PO DAILY 05/06/15 Nitroglycerin [Nitrostat 0.4 mg (1/150 Gr) Tabs 25/Bottle] 1 tab SL ASDIR PRN Amlodipine Besylate [Norvasc 10 mg Tablet] 10 mg PO DAILY #0 tablet 05/15/15 Albuterol Sulfate [Proair HFA] 2 puff IH QIDP PRN 03/10/17 Fluticasone/Salmeterol [Advair 250-50 Diskus 28 dose] 1 inh IH Q12 03/10/17 Lisinopril [Prinivil 10 mg Tablet] 10 mg PO DAILY 03/10/17 Cyanocobalamin (Vitamin B-12) [Vitamin B-12 1000 mcg Tablet] 1,000 mcg PO DAILY tablet 03/19/17 Hydralazine HCl [Apresoline 50 mg Tablet] 50 mg PO Q8 tablet 03/19/17 Ipratropium/Albuterol Sulfate [Duoneb 3 ml Ampul] 3 ml NEB [id number] PRN vial.neb 03/19/17 Lansoprazole [Prevacid 30 mg Odt Tablet] 30 mg PO Q6AM tab.rap 03/19/17 Sodium Chloride [[place] Nasal [place] 44 ml Bottle] 1 spray NASL ACHS bottle 03/19 History of Present Illness History of Present Illness: RAMIRO LEÓN is a 86 year old male with past medical history significant for coronary artery disease, basal cell skin cancer, BPH, hemorrhoids, hypertension , hyperlipidemia, who presented to the emergency department with a one-day history of shortness of breath. And patient also complains of fatigue. He reports his last bowel movement was a properly one week ago which time he had a significant amount of bright red blood per rectum. He's had no other bowel movements in the last 1 week. He denies any abdominal pain this time. He reports that he's had some chills but no fevers. He's had a cough that's productive of clear phlegm but this is not unusual for him. Patient reports that his prior GI workup was done in the 90s. Patient here in the emergency department is found to have some bright red blood per rectum and a hemoglobin of 5.3. He is referred to hospital service for hypotension, acute blood loss anemia. Hospital Course Hospital Course: Patient received 6 units of packed red blood cells and was in the ICU for short period of time all his blood pressure recovered. Patient's Effient was stopped. Patient underwent endoscopic evaluation and a cecal mass was found. Pathology on this revealed adenocarcinoma in situ. Patient is currently a poor candidate for surgery due to his functional status and has been sent to rehabilitation. Currently, patient is not undergoing any chemotherapy or radiation or surgery for his diagnosis. After rehabilitation if patient's functional status improves, then he is advised to seek out Dr. Simmons at [facility] for possible endoscopic removal of his tumor. Evaluation of patient's anemia revealed both B-12 deficiency anemia as well as iron deficiency anemia. He was subsequently started on replacement for both of these. Patient's hemoglobin has been stable since transfusion and stopping his Effient. Patient family does understand that he is at increased risk for stroke because of this and his underlying atrial fibrillation. Patient did have a transient alteration in mentation which was felt to be secondary to hypercapnia from not using his CPAP every night as well as from the initiation of Prozac. Prozac was stopped and patient was placed on his CPAP with improvement of his mental status. Subsequently patient suffered from hypertensive urgency due to rebound hypertension from clonidine and was transitioned to a clonidine patch. Patient' s blood pressure significantly improved although patient did suffer from some mild orthostasis secondary to antihypertensive usage. Patient is advised to get up slowly and with assistance. Although not listed on patient's medication due to GlycoMimeticstech dysfunction, patient is on a 0.3 mg clonidine patch to be changed every Thursday. This will need to be continued. Suffer from some constipation after colonoscopy and required the use of magnesium citrate. Patient had good results with this and had a bowel movement on 03/18/2017. For his chronic lymphedema, patient will need to use his home at [employer] daily or leg wrappings from home. The remainder of patient's hospitalization is unremarkable. Physical Exam Vital Signs: Temp Pulse Resp BP Pulse Ox 98.2 F 70 23 H 130/45 H 94 03/19/17 00:00 03/19/17 07:00 03/19/17 00:00 03/19/17 00:00 03/19/17 00:00 Intake & Output 03/18/17 03/19/17 03/20/17 06:59 06:59 06:59 Intake Total 880 1260 Output Total 850 325 Balance 30 935 Weight 141.2 kg Exam: General: Awake alert, no acute respiratory distress HEENT: AT/NC, PERRL, EOMI, oropharynx is moist, pink, no scleral icterus, clear conjunctiva Neck: No JVD, trachea midline Chest: Diminished bases, Clear to auscultation bilaterally, no wheezes rhonchi or rales, limited by body habitus and effort CV: Regular rate and rhythm, normal S1 and S2, no murmur, rub, or gallop Abdomen: Soft, nontender to palpation, mildly distended, active bowel sounds; no rebound, rigidity, or guarding Extremities: No cyanosis, clubbing; chronic lymphedema, 2+ pitting edema Neuro: Cranial nerves II through XII are grossly intact without focal deficits Results Laboratory Results: 03/16/17 08:59 03/15/17 06:51 03/10/17 03/10/17 03/11/17 21:10 21:10 11:49 Creatine Kinase 32 L 39 L CK-MB (CK-2) 1.05 Troponin I < 0.012 Impressions: Abdomen/Pelvis CT 03/10/17 00:00 IMPRESSION: NO SIGNIFICANT OR ACUTE ABDOMINAL PROCESS. Chest X-Ray 03/12/17 00:00 IMPRESSION: Cardiomegaly. No acute infiltrates Qualifiers PATEINT BEING DISCHARGED WITH ANY OF THE FOLLOWING DIAGNOSIS?: No Plan Time Spent: Greater than 30 Minutes
[2017-03-19] MEDS: CYANOCOBALAMIN (VITAMIN B-12) 1,000 MCG TABLET PO SCH (10:22)
[2017-03-19] MEDS: FLUTICASONE/SALMETEROL DISKUS 250-50 MCG/DOSE IH SCH (10:22)
[2017-03-19] MEDS: LISINOPRIL 10 MG TABLET PO SCH (10:22)
[2017-03-19] MEDS: AMLODIPINE BESYLATE 10 MG TABLET PO SCH (10:22)
[2017-03-19] MEDS: CETIRIZINE 10 MG TABLET PO SCH (10:23)
[2017-03-19 15:41] VITALS: BP 145/53
--- NOTE | 2017-04-06 12:31 | Progress Note ---
Provider Note Provider Note: Addendum to discharge summary 03/19/17: Patient was transferred to a SNF for rehab.
== END 2017-03-19 16:52 | DRG 374 ==
LOC: ER 12:51 → EH 16:55 → UNDOADMIN 16:55 → EH 17:19 → ICU 03-11 08:33 → 5 03-12 21:15
PROVIDERS: ADMIT Family Medicine; ATTEND Family Medicine
PROC: 30233N1 Transfusion of Nonautologous Red Blood Cells into Peripheral Vein, Percutaneous Approach (ICD-10-PCS; 2017-03-10)
PROC: 30233N1 Transfusion of Nonautologous Red Blood Cells into Peripheral Vein, Percutaneous Approach (ICD-10-PCS; 2017-03-11)
PROC: 0DBH8ZX Excision of Cecum, Via Natural or Artificial Opening Endoscopic, Diagnostic (ICD-10-PCS; principal; 2017-03-13 11:30)
PROC: 0DB68ZX Excision of Stomach, Via Natural or Artificial Opening Endoscopic, Diagnostic (ICD-10-PCS; 2017-03-13 11:30)
DX: D01.0 Carcinoma in situ of colon (principal); G93.40 Encephalopathy, unspecified; D62 Acute posthemorrhagic anemia; Z68.41 Body mass index [BMI] 40.0-44.9, adult; I95.9 Hypotension, unspecified; Z66 Do not resuscitate; E66.01 Morbid (severe) obesity due to excess calories; I25.10 Atherosclerotic heart disease of native coronary artery without angina pectoris; Z95.5 Presence of coronary angioplasty implant and graft; E11.9 Type 2 diabetes mellitus without complications; I11.0 Hypertensive heart disease with heart failure; I50.9 Heart failure, unspecified; T46.5X5A Adverse effect of other antihypertensive drugs, initial encounter; I16.0 Hypertensive urgency; I48.91 Unspecified atrial fibrillation; E78.5 Hyperlipidemia, unspecified; I89.0 Lymphedema, not elsewhere classified; N40.0 Benign prostatic hyperplasia without lower urinary tract symptoms; K64.4 Residual hemorrhoidal skin tags; D51.9 Vitamin B12 deficiency anemia, unspecified; F43.21 Adjustment disorder with depressed mood; R06.89 Other abnormalities of breathing; Z82.49 Family history of ischemic heart disease and other diseases of the circulatory system; Z87.891 Personal history of nicotine dependence; Z85.828 Personal history of other malignant neoplasm of skin; Z91.19 Patient's noncompliance with other medical treatment and regimen; Z86.14 Personal history of Methicillin resistant Staphylococcus aureus infection
CPT/HCPCS: 00740; 36415; 36430; 43239; 45380; 45381; 71010; 74176; 80048; 80053; 80076; 81001; 82272; 82550; 82553; 82607; 82728; 82746; 83010; 83540; 83550; 83615; 83735; 83880; 84100; 84466; 84484; 85025; 85045; 85610; 85730; 86850; 86900; 86901; 86920; 88305; 88342; 93005; 93010; 93306; 94640; 94799; 99291; G8978-GP; G8979-GP; J0360; J1756; J1940; J2704; J3420; J3490; J7120; J7620; P9016; S0164

== ENCOUNTER → 2017-06-29 | Outpatient (CLI) | payer MEDICARE, OTHER ==
[2017-06-29 12:16] LABS: ABSOLUTE BASOPHILS # (AUTO) 0.1 10^3/uL (0.0-0.2); ABSOLUTE EOSINOPHILS # (AUTO) 0.1 10^3/uL (0.0-0.6); ABSOLUTE MONOCYTES (AUTO) 0.7 10^3/uL (0.1-1.4); ABSOLUTE NEUT (AUTO) 4.9 10^3/uL (1.7-8.2); BASOPHILS % (AUTO) 1.4 % (0-2); HEMATOCRIT 33.5 % (37.9-51.0); HEMOGLOBIN 11.2 g/dL (13.5-17.0); HGB HCT DIFFERENCE 0.1; LYMPHOCYTES % (AUTO) 25.6 % (13-45); MEAN CORPUSCULAR HEMOGLOBIN 26.5 pg (27.0-33.4); MEAN CORPUSCULAR HGB CONC 33.5 g/dL (32.0-36.0); MEAN CORPUSCULAR VOLUME 79 fl (80-97); MONOCYTES % (AUTO) 8.7 % (3-13); RED BLOOD COUNT 4.24 10^6/uL (4.35-5.55); RED CELL DISTRIBUTION WIDTH 17.3 % (11.5-14.0); SEGMENTED NEUTROPHILS % (AUTO) 63.3 % (42-78); WHITE BLOOD COUNT 7.8 10^3/uL (4.0-10.5)
[2017-06-29 12:44] LABS: ALANINE AMINOTRANSFERASE 18 U/L (21-72); ALKALINE PHOSPHATASE 63 U/L (38-126); ANION GAP 12 (5-19); ASPARTATE AMINO TRANSFERASE 16 U/L (17-59); BILIRUBIN,DIRECT 0.4 mg/dL (0.0-0.4); BILIRUBIN,TOTAL 0.6 mg/dL (0.2-1.3); BLOOD UREA NITROGEN 16 mg/dL (7-20); CALCIUM 9.7 mg/dL (8.4-10.2); CARBON DIOXIDE 26 mmol/L (22-30); CHLORIDE 104 mmol/L (98-107); CREATININE RESULT 0.87 mg/dL (0.52-1.25); GLUCOSE 98 mg/dL (75-110); POTASSIUM 4.4 mmol/L (3.6-5.0); SODIUM 141.6 mmol/L (137-145); TOTAL PROTEIN 7.3 g/dL (6.3-8.2)
== END ==
LOC: OD 11:08
PROVIDERS: ATTEND Physician Assistant
DX: D62 Acute posthemorrhagic anemia (principal); C18.0 Malignant neoplasm of cecum
CPT/HCPCS: 36415; 80053; 85025

== ENCOUNTER → 2017-07-16 | Outpatient (CLI) | payer MEDICARE, OTHER | LOC: OD 10:21 | PROVIDERS: ATTEND Internal Medicine Cardiovascular Disease | DX: R60.9 Edema, unspecified (principal) | CPT/HCPCS: 36415; 83735 ==

== ENCOUNTER → 2017-09-16 | Outpatient (CLI) | payer MEDICARE, OTHER ==
[2017-09-16 09:51] LABS: ABSOLUTE LYMPHOCYTES (AUTO) 2.4 10^3/uL (0.5-4.7); ABSOLUTE MONOCYTES (AUTO) 0.7 10^3/uL (0.1-1.4); ABSOLUTE NEUT (AUTO) 6.1 10^3/uL (1.7-8.2); BASOPHILS % (AUTO) 0.3 % (0-2); EOSINOPHILS % (AUTO) 0.1 % (0-6); HEMATOCRIT 34.7 % (37.9-51.0); HEMOGLOBIN 11.6 g/dL (13.5-17.0); HGB HCT DIFFERENCE 0.1; LYMPHOCYTES % (AUTO) 26.1 % (13-45); MEAN CORPUSCULAR HEMOGLOBIN 26.9 pg (27.0-33.4); MEAN CORPUSCULAR HGB CONC 33.5 g/dL (32.0-36.0); MEAN CORPUSCULAR VOLUME 80 fl (80-97); MONOCYTES % (AUTO) 7.4 % (3-13); RED BLOOD COUNT 4.34 10^6/uL (4.35-5.55); RED CELL DISTRIBUTION WIDTH 16.9 % (11.5-14.0); SEGMENTED NEUTROPHILS % (AUTO) 66.1 % (42-78); WHITE BLOOD COUNT 9.3 10^3/uL (4.0-10.5)
[2017-09-16 10:09] LABS: ALANINE AMINOTRANSFERASE 29 U/L (21-72); ALBUMIN 3.8 g/dL (3.5-5.0); ALKALINE PHOSPHATASE 60 U/L (38-126); ANION GAP 10 (5-19); ASPARTATE AMINO TRANSFERASE 14 U/L (17-59); BILIRUBIN,DIRECT 0.4 mg/dL (0.0-0.4); BILIRUBIN,TOTAL 0.6 mg/dL (0.2-1.3); BLOOD UREA NITROGEN 15 mg/dL (7-20); CALCIUM 9.4 mg/dL (8.4-10.2); CARBON DIOXIDE 30 mmol/L (22-30); CHLORIDE 105 mmol/L (98-107); CREATININE RESULT 0.91 mg/dL (0.52-1.25); GLUCOSE 96 mg/dL (75-110); POTASSIUM 4.7 mmol/L (3.6-5.0); SODIUM 144.9 mmol/L (137-145); TOTAL PROTEIN 6.9 g/dL (6.3-8.2)
== END ==
LOC: OD 08:25
PROVIDERS: ATTEND Physician Assistant
DX: C18.0 Malignant neoplasm of cecum (principal); D62 Acute posthemorrhagic anemia
CPT/HCPCS: 36415; 80053; 85025

== ENCOUNTER 2018-02-23 00:33 | Emergency (ER) | payer MEDICARE, OTHER ==
[2018-02-23] MEDS ORDERED: HYDROMORPHONE HCL INJ/PF 2 MG/ML AMPULE IM ONE (00:45)
[2018-02-23] MEDS ORDERED: KETOROLAC TROMETHAMINE 60 MG/2 ML SDV IM ONE (00:45)
[2018-02-23] MEDS ORDERED: HYDROMORPHONE HCL INJ/PF 2 MG/ML AMPULE ONE (00:46)
[2018-02-23] MEDS ORDERED: KETOROLAC TROMETHAMINE 60 MG/2 ML SDV ONE (00:47)
--- NOTE | 2018-02-23 00:53 | ER Document Report ---
ED General - General Chief Complaint: Shoulder Injury Stated Complaint: FALL,SHOULDER PAIN Time Seen by Provider: 02/23/18 00:39 Notes: Patient is an 87-year-old male with a past medical history of colon cancer not currently on any therapy, hypertension, hyperlipidemia, peripheral arterial disease, who presents with severe right shoulder pain after falling. The patient was apparently trying to get into his recliner when he fell landing directly on the right shoulder. He did also strike his right forehead. Since that time he has had a severe, throbbing, constant pain to the right shoulder. Any attempt at moving the arm worsens the pain. He does arrive by EMS but did not receive anything to improve the pain as they could not obtain an IV. He has no prior history of injuries to this shoulder or extremity. He is right- hand dominant. He denies any use of anticoagulation. He denies any focal weakness, numbness, confusion or injury or pain to any other location other than his shoulder. TRAVEL OUTSIDE OF THE [place] IN LAST 30 DAYS: No - Related Data Allergies/Adverse Reactions: No Known Allergies Allergy (Verified 05/04/15 14:25) Past Medical History - General Information source: Patient - Social History Smoking Status: Never Smoker Frequency of alcohol use: None Drug Abuse: None Lives with: Alone Family History: Reviewed & Not Pertinent - Past Medical History Cardiac Medical History: Reports: Hx Atrial Fibrillation, Hx Congestive Heart Failure, Hx Hypercholesterolemia, Hx Hypertension Endocrine Medical History: Denies: Hx Diabetes Mellitus Type 1, Hx Diabetes Mellitus Type 2 Renal/ Medical History: Denies: Hx Peritoneal Dialysis GI Medical History: Reports: Hx Ulcer - Told he had a stomach ulcer many years ago. 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 Eyes: Negative for visual changes. ENT: Negative for facial injury Cardiovascular: Negative for chest injury. Respiratory: Negative for shortness of breath. Gastrointestinal: Negative for abdominal injury. Genitourinary: Negative for genital injury Musculoskeletal: Positive for right shoulder injury Skin: Negative for laceration/abrasions. Neurological: Positive for head injury. Physical Exam - Vital signs Vitals: Pulse Resp BP Pulse Ox 60 18 156/60 H 93 02/23/18 01:39 02/23/18 01:39 02/23/18 01:39 02/23/18 01:39 Interpretation: Normal Notes: PHYSICAL EXAMINATION: GENERAL: Appears uncomfortable but no acute distress HEAD: Small ecchymosis to the right central forehead EYES: Pupils equal round and reactive to light, extraocular movements intact, sclera anicteric, conjunctiva are normal. ENT: nares patent, no oral pharyngeal trauma. No hemotympanum, no Gold's sign , no raccoon eyes. NECK: No midline cervical spine tenderness. Patient able to move their head to 45 bilaterally without any discomfort. LUNGS: Breath sounds clear to auscultation bilaterally and equal. No wheezes rales or rhonchi. HEART: Irregularly irregular rate and rhythm. Systolic ejection murmur. CHEST WALL: No ecchymosis over the chest wall. ABDOMEN: Soft, nontender, normoactive bowel sounds. No guarding, no rebound. No abdominal bruising EXTREMITIES: Patient is unable to perform range of motion with right shoulder. Otherwise no acute extremity findings. BACK: No midline spinal tenderness, step-offs, or deformities. NEUROLOGICAL: Face symmetric. Tongue protrudes midline. Extraocular motions intact. Pupils are 2 mm and equally reactive. Normal speech. senior web analyst strength intact bilaterally. 5 out of 5 both distally and proximally the bilateral lower extremities. Sensation is grossly intact throughout. PSYCH: Normal mood, normal affect. SKIN: Warm, Dry, normal turgor, no rashes or lesions noted. Course - Re-evaluation Re-evalutation: 02/23/18 00:51 Patient presents after a mechanical fall when she fell out of his recliner striking his right shoulder and humerus as well as the right side of his head. Patient denies a syncopal episode as the cause for today's fall. No focal neurologic deficits on exam, no evidence of basilar skull fracture on exam without evidence of hemotympanum, raccoon eyes, or periauricular hematoma. No papilledema. Patient is not on anticoagulation. GCS is 15. No loss of consciousness. No episodes of vomiting. However, based on patient's age a CT of the head has been obtained. Likewise, patient was unable to be clinically cleared due to age by [place] cervical spine criteria. Will obtain a CT of the cervical spine to further evaluate.. No indication for further imaging of the cervical spine. Patient does have severe pain on palpation of the right proximal humerus on examination. Will obtain a right shoulder and right humeral x-ray to verify my concern for possible humeral fracture versus shoulder dislocation. RMU motor and sensory distribution is intact laterally. Chest and abdominal exam are benign without any focal tenderness, shortness of breath, or bruising over the chest or abdominal wall. Patient has no flank tenderness. 02/23/18 01:13 X-ray does show an obvious shoulder dislocation. A Hill-Sachs lesion is also noted. The patient will undergo procedural sedation for reduction using propofol. 02/23/18 02:48 Patient tolerated procedural sedation well, no significant difficulty in relocation of the right shoulder. A CT of the head and cervical spine are negative for any acute intracranial bleed or fracture of the cervical spine. Patient has had dramatic improvement of his pain, smiling and joking with me. At this time will discharge with return precautions and follow-up recommendations. Verbal discharge instructions given a the bedside and opportunity for questions given. Medication warnings reviewed. Patient is in agreement with this plan and has verbalized understanding of return precautions and the need for primary care follow-up in the next 24-72 hours. - Vital Signs Vital signs: Temp Pulse Resp BP Pulse Ox 66 16 113/41 L 98 02/23/18 01:56 02/23/18 01:56 02/23/18 01:56 02/23/18 01:56 - Diagnostic Test Radiology reviewed: Image reviewed, Reports reviewed Radiology results interpreted by me: 02/23/18 01:30 Right shoulder x-ray: Anterior shoulder dislocation with an associated Hill- Sachs lesion 02/23/18 02:48 Postreduction x-ray: Appropriate relocation of the right shoulder, Hill-Sachs lesion present Procedures - Conscious Sedation Conscious sedation Time started: 01:39 Time completed: 01:50 Consent obtained: Yes Prior complications: Procedural sedation Pt with a severe systemic disease.: P3. - ASA Classification. Airway Evaluation: Obese Mallampati Classification: Class 2 Used during procedure: Suction available, IV access obtained, Pulse ox on pt., two way radio installer on pt. Medications administered: Diprivan Reversal agents: None I personally performed/intraservice time: Sedation, Procedure, 30 min or less Complications: No - Joint Reduction/Fracture Care Right Shoulder Time completed: 01:45 Consent obtained: Yes Conscious sedation: Yes Pre-procedure NV exam: Yes Fracture: Other - Right shoulder dislocation Manipulation comment: Downward traction external rotation Post-procedure NV exam: Yes Post-reduction x-ray: Joint reduced Reduction attempts: 1 Complications: No Discharge - Discharge Clinical Impression: Hill-Sachs lesion of right shoulder Fall Qualifiers: Encounter type: initial encounter Qualified Code(s): W19.XXXA - Unspecified fall, initial encounter Dislocation of right shoulder joint Qualifiers: Encounter type: initial encounter Qualified Code(s): S43.004A - Unspecified dislocation of right shoulder joint, initial encounter Head trauma Qualifiers: Encounter type: initial encounter Qualified Code(s): S09.90XA - Unspecified injury of head, initial encounter Condition: Stable Disposition: HOME, SELF-CARE Additional Instructions: You were seen for a shoulder dislocation. Your shoulder was put back in place. You should wear the sling for comfort although be sure to continue to gently range your shoulder to prevent a frozen or locked shoulder. You do also have a small chip fracture to the head of the humerus which should heal on its own. The CT scan of your head and neck are normal and these were obtained because you did fall and strike your head. For your pain: Take ibuprofen 400 mg and acetaminophen 1000 mg every 6 hours together as needed for pain. You may also apply topical lidocaine over the shoulder area that is uncomfortable. Please follow-up with your primary care doctor within the next 2-3 days. Referrals: BUZZ MARSHALL MD [Primary Care Provider] - Follow up as needed AMBER GRIFFIN MD [ACTIVE STAFF] - Follow up as needed
[2018-02-23] MEDS ORDERED: ONDANSETRON HCL INJ/PF 4 MG/2 ML SDV IV ONE (01:12)
[2018-02-23] MEDS ORDERED: PROPOFOL INJ 200 MG/20 ML VIAL IV ONE ×3 (01:12→03:06)
--- NOTE | 2018-02-23 01:14 | RADIOLOGY REPORT (SQ) ---
EXAM DESCRIPTION: SHOULDER RIGHT 2 OR MORE VIEWS CLINICAL HISTORY: fall, pain COMPARISON: None. FINDINGS: 2 views of the right shoulder. Anterior and inferior dislocation of the humeral head with mildly displaced fracture involving the superior lateral aspect of the humeral head compatible with a Hill-Sachs fracture. Degenerative change of the acromioclavicular joint. No acute abnormalities of the visualized right hemithorax. IMPRESSION: 1. Acute anterior inferior dislocation of the right glenohumeral joint. 2. Mildly displaced Hill-Sachs fracture of the superolateral aspect of the humerus.
--- NOTE | 2018-02-23 02:22 | RADIOLOGY REPORT (SQ) ---
EXAM DESCRIPTION: SHOULDER RIGHT 1 VIEW CLINICAL HISTORY: POST REDUCTION COMPARISON: Same day FINDINGS: Right glenohumeral joint now in near normal anatomic alignment. Persistent fracture involving the superior lateral aspect of the humeral head likely representing a Hill-Sachs fracture. Degenerative change of the acromioclavicular joint. Osteopenia. No right rib fractures identified or right-sided pneumothorax. IMPRESSION: 1. Right glenohumeral joint now in near normal anatomic alignment. 2. Minimally displaced fracture involving the superolateral aspect of the humeral head again identified.
--- NOTE | 2018-02-23 02:45 | RADIOLOGY REPORT (SQ) ---
EXAM DESCRIPTION: CT HEAD WITHOUT CLINICAL HISTORY: head trauma COMPARISON: None available TECHNIQUE: Axial CT of the head obtained from the skull apex to the skull base without contrast. FINDINGS: No acute intracranial hemorrhage identified. No mass, mass effect, shift of the midline, abnormal extra-axial fluid collection or CT evidence of acute ischemic change identified. The ventricular system and sulcal spaces are mildly enlarged compatible with mild cerebral atrophy. Scattered areas of hypodensity throughout the supratentorial white matter are nonspecific and may be related to chronic small vessel ischemic change. The visualized paranasal sinuses and the mastoids are clear. No skull fracture identified. Visualized orbits and globes are unremarkable. Atherosclerotic calcification of the intracranial internal carotid arteries. DLP:1222.03 mGy-cm IMPRESSION: 1. No acute intracranial abnormality by CT criteria. This exam was performed according to our departmental dose-optimization program, which includes automated exposure control, adjustment of the mA and/or kV according to patient size and/or use of iterative reconstruction technique.
--- NOTE | 2018-02-23 02:48 | RADIOLOGY REPORT (SQ) ---
EXAM DESCRIPTION: CT CERVICAL SPINE WITHOUT CLINICAL HISTORY: Fall/trauma. Pain. COMPARISON: None available TECHNIQUE: Axial CT of the cervical spine obtained without contrast. FINDINGS: Rating of the cervical lordosis is likely secondary to patient positioning. The atlantoaxial, atlantodental, and occipitoatlantal intervals are preserved. No fracture identified. Vertebral body height preserved. Prevertebral soft tissues are unremarkable. Moderate multilevel loss of intervertebral disc height with bridging anterior osteophytes as well as uncovertebral spurring and posterior osteophytes. Multilevel mild to moderate facet arthropathy. Moderate multilevel osseous neural foraminal narrowing. No definite central canal narrowing. Visualized skull base is intact. No fracture of the visualized facial bones. Visualized mastoid air cells and paranasal sinuses are well aerated. Visualized thyroid is unremarkable. No cervical lymphadenopathy. No pneumothorax in the visualized lung apices. Atherosclerotic vascular calcification. DLP: 360.13 mGy-cm IMPRESSION: 1. No acute fracture or subluxation of the cervical spine. 2. Moderate to severe multilevel degenerative change throughout the cervical spine. This exam was performed according to our departmental dose-optimization program, which includes automated exposure control, adjustment of the mA and/or kV according to patient size and/or use of iterative reconstruction technique.
[2018-02-23 03:16] VITALS: BP 167/66
== END 2018-02-23 03:20 | disposition home or self-care (01) ==
LOC: ER 00:33
PROC: 0RSJXZZ Reposition Right Shoulder Joint, External Approach (ICD-10-PCS; principal; 2018-02-23)
DX: S42.291A Other displaced fracture of upper end of right humerus, initial encounter for closed fracture (principal); S43.004A Unspecified dislocation of right shoulder joint, initial encounter; S09.90XA Unspecified injury of head, initial encounter; W07.XXXA Fall from chair, initial encounter
CPT/HCPCS: 99284; 96372; 99152; 96374; 73020; 73030; 70450; 72125; 23650; L3650; J1885; J1170; J2405; J2704

== ENCOUNTER → 2018-03-18 | Outpatient (CLI) | payer MEDICARE, OTHER ==
[2018-03-18 09:22] LABS: ABSOLUTE BASOPHILS # (AUTO) 0.1 10^3/uL (0.0-0.2); ABSOLUTE LYMPHOCYTES (AUTO) 1.5 10^3/uL (0.5-4.7); ABSOLUTE MONOCYTES (AUTO) 0.5 10^3/uL (0.1-1.4); ABSOLUTE NEUT (AUTO) 4.9 10^3/uL (1.7-8.2); BASOPHILS % (AUTO) 1.4 % (0-2); EOSINOPHILS % (AUTO) 0.7 % (0-6); HEMATOCRIT 34.6 % (37.9-51.0); HEMOGLOBIN 10.7 g/dL (13.5-17.0); LYMPHOCYTES % (AUTO) 21.1 % (13-45); MEAN CORPUSCULAR HEMOGLOBIN 22.8 pg (27.0-33.4); MEAN CORPUSCULAR HGB CONC 31.1 g/dL (32.0-36.0); MEAN CORPUSCULAR VOLUME 73 fl (80-97); MONOCYTES % (AUTO) 7.4 % (3-13); PLATELET COUNT 492 10^3/uL (150-450); RED BLOOD COUNT 4.72 10^6/uL (4.35-5.55); RED CELL DISTRIBUTION WIDTH 19.6 % (11.5-14.0); SEGMENTED NEUTROPHILS % (AUTO) 69.4 % (42-78); TOTAL CELLS COUNTED % (AUTO) 100 %; WHITE BLOOD COUNT 7.1 10^3/uL (4.0-10.5)
[2018-03-18 09:35] LABS: HEMATOCRIT 34.6 % (37.9-51.0); HEMOGLOBIN 10.7 g/dL (13.5-17.0); MEAN CORPUSCULAR HEMOGLOBIN 22.8 pg (27.0-33.4); MEAN CORPUSCULAR HGB CONC 31.1 g/dL (32.0-36.0); MEAN CORPUSCULAR VOLUME 73 fl (80-97); PLATELET COUNT 492 10^3/uL (150-450); RED BLOOD COUNT 4.72 10^6/uL (4.35-5.55); RED CELL DISTRIBUTION WIDTH 19.6 % (11.5-14.0); WHITE BLOOD COUNT 7.1 10^3/uL (4.0-10.5)
[2018-03-18 09:42] LABS: ALANINE AMINOTRANSFERASE 24 U/L (21-72); ALBUMIN 3.7 g/dL (3.5-5.0); ALKALINE PHOSPHATASE 67 U/L (38-126); ANION GAP 11 (5-19); ASPARTATE AMINO TRANSFERASE 14 U/L (17-59); BILIRUBIN,DIRECT 0.3 mg/dL (0.0-0.4); BILIRUBIN,TOTAL 0.5 mg/dL (0.2-1.3); BLOOD UREA NITROGEN 18 mg/dL (7-20); CALCIUM 9.7 mg/dL (8.4-10.2); CARBON DIOXIDE 32 mmol/L (22-30); CHLORIDE 103 mmol/L (98-107); CHOLESTEROL 222.11 mg/dL (0-200); GLUCOSE 103 mg/dL (75-110); POTASSIUM 5.1 mmol/L (3.6-5.0); TRIGLYCERIDES 83 mg/dL (<150)
[2018-03-18 09:54] LABS: DIRECT LDL 147 mg/dL (<100)
== END ==
LOC: OD 08:18
PROVIDERS: ATTEND Internal Medicine
DX: Z79.899 Other long term (current) drug therapy (principal); R06.02 Shortness of breath; D62 Acute posthemorrhagic anemia; E78.00 Pure hypercholesterolemia, unspecified; I10 Essential (primary) hypertension
CPT/HCPCS: 36415; 80048; 80061; 80076; 83735; 83880; 85025; 85027

== ENCOUNTER → 2018-04-29 | Outpatient (CLI) | payer MEDICARE, OTHER ==
[2018-04-29 09:34] LABS: ABSOLUTE BASOPHILS # (AUTO) 0.1 10^3/uL (0.0-0.2); ABSOLUTE EOSINOPHILS # (AUTO) 0.1 10^3/uL (0.0-0.6); ABSOLUTE LYMPHOCYTES (AUTO) 2.1 10^3/uL (0.5-4.7); ABSOLUTE MONOCYTES (AUTO) 0.5 10^3/uL (0.1-1.4); ABSOLUTE NEUT (AUTO) 3.7 10^3/uL (1.7-8.2); BASOPHILS % (AUTO) 1.6 % (0-2); EOSINOPHILS % (AUTO) 0.8 % (0-6); HEMATOCRIT 34.4 % (37.9-51.0); LYMPHOCYTES % (AUTO) 31.9 % (13-45); MEAN CORPUSCULAR HEMOGLOBIN 23.4 pg (27.0-33.4); MEAN CORPUSCULAR HGB CONC 31.9 g/dL (32.0-36.0); MEAN CORPUSCULAR VOLUME 73 fl (80-97); MONOCYTES % (AUTO) 8.1 % (3-13); PLATELET COUNT 407 10^3/uL (150-450); RED CELL DISTRIBUTION WIDTH 19.9 % (11.5-14.0); SEGMENTED NEUTROPHILS % (AUTO) 57.6 % (42-78); TOTAL CELLS COUNTED % (AUTO) 100 %; WHITE BLOOD COUNT 6.5 10^3/uL (4.0-10.5)
[2018-04-29 09:58] LABS: ALANINE AMINOTRANSFERASE 21 U/L (21-72); ALBUMIN 3.8 g/dL (3.5-5.0); ALKALINE PHOSPHATASE 53 U/L (38-126); ANION GAP 11 (5-19); ASPARTATE AMINO TRANSFERASE 17 U/L (17-59); BILIRUBIN,DIRECT 0.4 mg/dL (0.0-0.4); BILIRUBIN,TOTAL 0.5 mg/dL (0.2-1.3); BLOOD UREA NITROGEN 21 mg/dL (7-20); CALCIUM 9.8 mg/dL (8.4-10.2); CARBON DIOXIDE 29 mmol/L (22-30); CHLORIDE 104 mmol/L (98-107); GLUCOSE 96 mg/dL (75-110); POTASSIUM 4.7 mmol/L (3.6-5.0); SODIUM 143.8 mmol/L (137-145)
== END ==
LOC: OD 08:04
PROVIDERS: ATTEND Internal Medicine
DX: D64.9 Anemia, unspecified (principal); I10 Essential (primary) hypertension
CPT/HCPCS: 36415; 80053; 85025

== ENCOUNTER 2019-09-04 08:35 | Emergency (ER) | payer MEDICARE, OTHER ==
[2019-09-04 10:22] LABS: ABSOLUTE BASOPHILS # (AUTO) 0.1 10^3/uL (0.0-0.2); ABSOLUTE LYMPHOCYTES (AUTO) 0.9 10^3/uL (0.5-4.7); ABSOLUTE MONOCYTES (AUTO) 0.8 10^3/uL (0.1-1.4); BASOPHILS % (AUTO) 0.7 % (0-2); EOSINOPHILS % (AUTO) 0.4 % (0-6); HEMATOCRIT 30.8 % (37.9-51.0); HEMOGLOBIN 9.8 g/dL (13.5-17.0); LYMPHOCYTES % (AUTO) 9.3 % (13-45); MEAN CORPUSCULAR HEMOGLOBIN 25.7 pg (27.0-33.4); MEAN CORPUSCULAR HGB CONC 31.9 g/dL (32.0-36.0); MEAN CORPUSCULAR VOLUME 81 fl (80-97); MONOCYTES % (AUTO) 8.3 % (3-13); PLATELET COUNT 439 10^3/uL (150-450); RED BLOOD COUNT 3.83 10^6/uL (4.35-5.55); RED CELL DISTRIBUTION WIDTH 19.1 % (11.5-14.0); SEGMENTED NEUTROPHILS % (AUTO) 81.3 % (42-78); TOTAL CELLS COUNTED % (AUTO) 100 %; WHITE BLOOD COUNT 9.9 10^3/uL (4.0-10.5)
[2019-09-04 10:38] LABS: ALBUMIN 2.8 g/dL (3.5-5.0); ALKALINE PHOSPHATASE 395 U/L (38-126); ANION GAP 7 (5-19); ASPARTATE AMINO TRANSFERASE 82 U/L (17-59); BILIRUBIN,DIRECT 0.5 mg/dL (0.0-0.4); BILIRUBIN,TOTAL 0.6 mg/dL (0.2-1.3); BLOOD UREA NITROGEN 18 mg/dL (7-20); CALCIUM 9.8 mg/dL (8.4-10.2); CARBON DIOXIDE 27 mmol/L (22-30); CHLORIDE 106 mmol/L (98-107); GLUCOSE 90 mg/dL (75-110); POTASSIUM 4.5 mmol/L (3.6-5.0); TOTAL PROTEIN 6.3 g/dL (6.3-8.2)
[2019-09-04 11:43] VITALS: BP 153/82
--- NOTE | 2019-09-05 12:34 | ER Document Report ---
Entered by TONIO WATTS SCRIBE 09/04/19 0901 Acting as scribe for:HANH MURILLO MD ED Fall - General Chief Complaint: Fall Stated Complaint: FALL Time Seen by Provider: 09/04/19 08:53 Primary Care Provider: BUZZ MARSHALL MD [Primary Care Provider] - Follow up as needed Mode of Arrival: Medic Information source: Patient, Relative, Emergency Med Personnel, [facility] Records Notes: 88-year-old male that presents today after a fall that occurred at home. Patient states he was walking back to his chair with his walker and landed on his knees with his face hitting into his chair. Patient has no real complaints from the fall. Patient seems to be more concerned with why he is weak although he does admit that this is he has been weak for over 2 years. Patient's daughter arrived and reports that she is concerned that his hemoglobin level may be falling, and is also concerned about a mass on his back that has been biopsied in the past, she does not know what the path report showed and it has been handled at wound care clinic in the past. She states that this time the patient is unable to get up and go to the car in order to go to any doctor's appointments or to continue with the wound care clinic. 1 03/10/2017 the patient was seen in emergency room with severe anemia requiring 6 units of packed red cells. 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 He was not a surgical candidate. TRAVEL OUTSIDE OF THE [place] IN LAST 30 DAYS: No - Related data Allergies/Adverse Reactions: No Known Allergies Allergy (Verified 09/04/19 08:41) Home Medications: norvasc perrigo exelan hydrazaine zetia demadex b 12 magnesi um. provided by ems Past Medical History - General Information source: Patient, Relative, Emergency Med Personnel, [facility] Records - Social History Smoking Status: Former Smoker Cigarette use (# per day): No Chew tobacco use (# tins/day): No Smoking Education Provided: No Frequency of alcohol use: None Drug Abuse: None Lives with: Family Family History: Reviewed & Not Pertinent Patient has suicidal ideation: No Patient has homicidal ideation: No - Past Medical History Cardiac Medical History: Reports: Hx Atrial Fibrillation, Hx Congestive Heart Failure, Hx Hypercholesterolemia, Hx Hypertension Endocrine Medical History: Reports: Hx Diabetes Mellitus Type 2 Renal/ Medical History: Reports: Hx Benign Prostatic Hyperplasia Malignancy Medical History: Reports Hx Colorectal Cancer - Adenocarcinoma in situ GI Medical History: Reports: Hx Ulcer - Told he had a stomach ulcer many years ago. Skin Medical History: Reports Hx MRSA - Both lower legs Psychiatric Medical History: Reports: Hx Depression Past Surgical History: Reports: Hx Cardiac Catheterization, Hx Cardiac Surgery - 2 stents, Other - Colonoscopy with biopsies showing rectal adenocarcinoma - Immunizations Immunizations up to date: Yes Hx Diphtheria, Pertussis, Tetanus Vaccination: Yes Review of Systems - Review of Systems Constitutional: See HPI, Weakness, Other - fall EENT: No symptoms reported Cardiovascular: No symptoms reported Respiratory: No symptoms reported Gastrointestinal: No symptoms reported Genitourinary: No symptoms reported Male Genitourinary: No symptoms reported Musculoskeletal: No symptoms reported Skin: No symptoms reported Hematologic/Lymphatic: No symptoms reported Neurological/Psychological: No symptoms reported -: Yes All other systems reviewed and negative Physical Exam - Vital signs Vitals: Temp 98.3 F 09/04/19 08:48 - Notes Notes: Physical Exam: General: Alert, appears age appropriate. HEENT: Normocephalic. Atraumatic. PERRL. Extraocular movements intact. Oropharynx clear. Neck: Supple. Non-tender. Respiratory: No respiratory distress. Clear and equal breath sounds bilaterally. Cardiovascular: Regular rate and rhythm. Abdominal: Obese. No distension. Normal Bowel Sounds. Back: The left mid back region has a large mushroomlike pedunculated mass. The pedicle part is necrotic and has a bad odor to it. There is no bleeding from this area at this time, but it looks like if it is disturbed very much it could start bleeding. There is a bandage over this mass. Extremities: Moves all four extremities. Upper extremities: Normal inspection. Normal ROM. Lower extremities: Bandages around lower extremities. Knees appear osteoarthritic bilaterally with no skin abrasions or bruising. No effusion of the knees. Neurological: Normal cognition. AAOx4. Normal speech. Psychological: Normal affect. Normal Mood. Skin: Multiple moles on face with one large mole between eyebrows. Course - Re-evaluation Re-evalutation: 09/04/19 11:14 The patient is hemoglobin is 9.8 today, 16 months ago was 11.0. Reviewing his hemoglobins since his transfusion on March 10, 2017 hemoglobin has essentially run in the range of 10-11. The LFTs show an elevation of the alkaline phosphatase 395, 16 months ago it was 53. - Vital Signs Vital signs: Temp Pulse Resp BP Pulse Ox 98.3 F 09/04/19 08:48 - Laboratory Result Diagrams: 09/04/19 09:46 09/04/19 09:46 Laboratory results interpreted by me: 09/04/19 09/04/19 09:46 09:46 RBC 3.83 L Hgb 9.8 L Hct 30.8 L MCH 25.7 L MCHC 31.9 L RDW 19.1 H Lymph % (Auto) 9.3 L Seg Neutrophils % 81.3 H Direct Bilirubin 0.5 H AST 82 H Alkaline Phosphatase 395 H Albumin 2.8 L Discharge - Discharge Clinical Impression: Weakness, Mass on back Fall Qualifiers: Encounter type: initial encounter Qualified Code(s): W19.XXXA - Unspecified fall, initial encounter Anemia Qualifiers: Anemia type: iron deficiency Iron deficiency anemia type: chronic blood loss Qualified Code(s): D50.0 - Iron deficiency anemia secondary to blood loss (chronic) Condition: Stable Disposition: HOME, SELF-CARE Additional Instructions: Your hemoglobin level today was 9.8, this is only slightly lower than what your baseline was last year. Your alkaline phosphatase level was markedly higher than it was last year. You should follow-up with your primary care provider to explore avenues for managing your various medical problems. Call your primary care provider tomorrow to schedule an office appointment to review the medical management and possible surgical management of your various problems. When you talk to the office staff, ask them if they can assist you in securing transportation to go to the office for your appointment. You will need to coordinate with one home of the transportation services to get to your appointments and back. RETURN TO THE EMERGENCY ROOM IF ANY NEW OR WORSENING SYMPTOMS. Referrals: BUZZ MARSHALL MD [Primary Care Provider] - Follow up tomorrow (Call the office tomorrow to schedule an appointment.) Scribe Attestation: 09/04/19 09:16 I personally performed the services described in the documentation, reviewed and edited the documentation which was dictated to the scribe in my presence, and it accurately records my words and actions. I personally performed the services described in the documentation, reviewed and edited the documentation which was dictated to the scribe in my presence, and it accurately records my words and actions.
== END 2019-09-04 12:19 | disposition home or self-care (01) ==
LOC: ER 08:35
DX: R53.1 Weakness (principal); R22.2 Localized swelling, mass and lump, trunk; D50.0 Iron deficiency anemia secondary to blood loss (chronic); V87.7XXA Person injured in collision between other specified motor vehicles (traffic), initial encounter; Z87.891 Personal history of nicotine dependence; I50.9 Heart failure, unspecified; I11.0 Hypertensive heart disease with heart failure; E11.9 Type 2 diabetes mellitus without complications; E66.9 Obesity, unspecified
CPT/HCPCS: 36415; 80053; 85025; 99283